=== PATIENT | male | born 1935 | race Caucasian/White ===

== ENCOUNTER 2018-04-04 05:36 | Day surgery (SDC) | payer MEDICARE, OTHER ==
[2018-04-04] MEDS ORDERED: Ketamine HCl 50 MG/ML IV ONE (05:37)
[2018-04-04] MEDS ORDERED: DIPRIVAN 200 MG/20 ML IV ONE (05:37)
[2018-04-04] MEDS ORDERED: Lactated Ringers 1,000 ML IV SCH (06:00)
[2018-04-04] MEDS ORDERED: Lactated Ringers 1,000 ML IV ONE (06:07)
[2018-04-04 09:11] VITALS: O2SAT 98
[2018-04-04 09:29] VITALS: BP 143/71; PULSE 61
--- NOTE | 2018-04-04 10:21 | OP ---
SURGERY DATE/TIME: 04/04/2018804 PREOPERATIVE DIAGNOSIS: History of lymphoma of the small bowel. POSTOPERATIVE DIAGNOSES: 1) NSAID gastropathy. 2) Sigmoid diverticulosis. PROCEDURES: 1) Esophagogastroduodenoscopy with biopsy. 2) Colonoscopy. SURGEON: Dr. Feliciano. ANESTHESIA: Medications were given by the anesthesia department. HISTORY: The patient is an 82 year-old white male presenting now due to the request to the patient's oncologist. He had a small bowel lymphoma apparently and he continues to have complaints of abdominal pain. He was felt the need to have endoscopic evaluation. The patient was described the risks of the procedure including the risk of perforation, phlebitis, untoward reaction to medication, bleeding, missed lesions. The patient verbalized his understanding and desired to have the procedure performed. DESCRIPTION OF PROCEDURE: The patient was given the medications by the anesthesia department. He had continuous pulse oximetry, ECG monitoring, intermittent blood pressure monitoring and tidal CO2 monitoring during the examination. He was placed in the left lateral decubitus position. A bite block was placed and the flexible Olympus gastroscope was used to intubate the oropharynx. A view of the larynx was obtained and was normal. The scope was easily introduced in the esophagus which was normal throughout its length. The stomach was entered where normal gastric rugal folds were seen and these distended nicely with insufflation of air. The scope was passed along the greater curvature of the stomach to the antrum where there appeared to be some erythema and some oozing from what appeared to be NSAID gastropathy. The pylorus encountered and intubated. The duodenum inspected and found to be mildly erythematous but no erosions or ulcerations were noted. The scope was withdrawn towards the stomach. A retroflex view was obtained of the lesser curvature, fundus and cardia regions of the stomach and these appeared essentially normal. The scope was then redirected towards the gastric antrum and biopsies were obtained to rule out the presence of Helicobacter pylori-type organisms. The scope was withdrawn from the patient. Next, a digital rectal exam was performed and revealed normal anal sphincter tone and no masses and normal prostate. The flexible Olympus pediatric colonoscope was used to intubate the rectum. A view of the colon was developed sequentially to the cecum. Upon insertion and withdrawal, including a retroflex view in the rectum was noted moderate diverticulosis throughout mostly the left side of the colon but scattered throughout the colon. There were no other mucosal lesions encountered. The scope was removed from the patient who tolerated the procedure well and was sent back to OP recovery in good condition. The prep was noted to be fair to poor.
== END 2018-04-04 09:35 | disposition home or self-care (01) ==
LOC: SDC 05:36
PROVIDERS: ATTEND Family Medicine
DX: Z12.11 Encounter for screening for malignant neoplasm of colon (principal); K31.9 Disease of stomach and duodenum, unspecified; K29.70 Gastritis, unspecified, without bleeding; Z85.72 Personal history of non-Hodgkin lymphomas; K57.30 Diverticulosis of large intestine without perforation or abscess without bleeding; Z90.49 Acquired absence of other specified parts of digestive tract; E11.9 Type 2 diabetes mellitus without complications
CPT/HCPCS: 43239; 94250; G0105; 88305; 88312; 99100; J2704

== ENCOUNTER 2021-01-28 12:30 | Observation (INO) | payer MEDICARE, OTHER ==
[2021-01-28] MEDS ORDERED: Adacel Vial IM ONE ×2 (13:00→13:03)
[2021-01-28] MEDS ORDERED: MORPHINE SULFATE 4 MG INJ IV ONE (13:00)
[2021-01-28] MEDS ORDERED: Zofran 4 MG/2 ML VIAL IV ONE (13:00)
[2021-01-28] MEDS ORDERED: MORPHINE SULFATE 4 MG INJ ONE (13:03)
[2021-01-28] MEDS ORDERED: Zofran 4 MG/2 ML VIAL ONE (13:03)
--- NOTE | 2021-01-28 13:25 | ERPHSYRPT ---
- History of Present Illness Time Seen by Provider: 01/28/21 13:00 Source: patient Exam Limitations: no limitations Patient Subjective Stated Complaint: pt alert, resp easy, skin w/d/p. pt states wednesday he hurt hand elctric drill and got right hand caugh, also co pain to left knee Triage Nursing Assessment: pt right hand swollen, has skin tear, right hand warm to touch, has swelling to left knee that is swollen, no injury, he states it is chronic Physician History: 85 years old male with a history of hypertension, hyperlipidemia, diabetes mellitus, hypothyroidism right-handed dominant presented in the ER with chief complaint of pain and swelling right hand for the last 2 days. Patient report he was working with electric drill when his right hand got caught between the index and thumb and twisted 2 days ago with a small cut. Gradually it started to develop swelling and pain initially around the lateral aspect of the hand and now involves the whole hand and progressing to wrist and forearm making it difficult to move because of swelling. He is complaining of dull aching to sharp pain in the right hand especially in the area of thumb and index. Also have swelling in the fingers but denies any numbness or tingling sensation. He also has a superficial skin tear at the first webspace area. Patient noticed since yesterday swelling is rapidly increasing and is warm to touch but denies any fever or chills. Unsure about tetanus status. Occurred: days ago (2) Method of Injury: twisted Quality: sharpness Severity of Pain-Max: moderate Severity of Pain-Current: moderate Extremities Pain Location: wrist: right, hand: right Modifying Factors: Improves With: immobilization, rest. Worsens With: movement Allergies/Adverse Reactions: No Known Drug Allergies Allergy (Verified 01/28/21 12:45) Home Medications: Allopurinol 300 mg [Zyloprim 300 mg] 300 mg PO UD 04/17/14 [History] Aspirin [Aspirin EC] 81 mg PO DAILY 04/17/14 [History] Isosorbide Mononitrate 30 mg [Imdur 30 MG] 30 mg PO DAILY 04/17/14 [History] Metoprolol Tartrate 25 mg [Lopressor 25MG Tab] 25 mg PO DAILY 04/17/14 [History] Nitroglycerin 0.4 mg Tablet [Nitrostat 0.4 MG Tablet] 0.4 mg SL UD 04/17/14 [History] Pravastatin Sodium [Pravachol] 40 mg PO HS 04/17/14 [History] Levothyroxine Sodium 25 Mcg [Synthroid 25 Mcg] 100 mcg PO DAILY 06/07/14 [History] Tamsulosin HCl 0.4 mg [Flomax 0.4 MG] 0.4 mg PO DAILY 06/07/14 [History] Lisinopril/Hydrochlorothiazide [Lisinopril-Hctz 20-12.5 mg Tab] 1 ea BID 01/28/21 [History] Hx Tetanus, Diphtheria Vaccination/Date Given: No Hx Influenza Vaccination/Date Given: Yes Hx Pneumococcal Vaccination/Date Given: No Travel Risk - International Travel Have you traveled outside of the country in past 3 weeks: No - Coronavirus Screening Are you exhibiting any of the following symptoms?: No Close contact with a COVID-19 positive Pt in past 14-21 Days: No - Vaccine Status Have you recieved a Covid-19 vaccination: Yes Advanced Quality 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 - Vaccination Dates Date of 2cond Vaccination (if applicable): january - Review of Systems Constitutional: No Symptoms Eyes: No Symptoms Ears, Nose, & Throat: No Symptoms Respiratory: No Symptoms Cardiac: No Symptoms Abdominal/Gastrointestinal: No Symptoms Genitourinary Symptoms: No Symptoms Musculoskeletal: Arthralgias, Injury, Joint Redness, Joint Pain Skin: Cellulitis, Induration, Rash, Skin Lesions Neurological: No Symptoms Psychological: No Symptoms Endocrine: No Symptoms Hematologic/Lymphatic: No Symptoms Immunological/Allergic: No Symptoms - Past Medical History Pertinent Past Medical History: Yes Neurological History: No Pertinent History ENT History: Cataracts Cardiac History: High Cholesterol, Hypertension Respiratory History: No Pertinent History Endocrine Medical History: Diabetes Type II Musculoskeletal History: Arthritis GI Medical History: GERD, Other History: No Pertinent History Psycho-Social History: No Pertinent History Male Reproductive Disorders: Prostate Problems Other Medical History: lymphoma, 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 - Past Surgical History Past Surgical History: Yes Neuro Surgical History: No Pertinent History Cardiac: Cardiac Catheterization, Cardiac Stent Respiratory: No Pertinent History Gastrointestinal: Other Genitourinary: No Pertinent History Musculoskeletal: No Pertinent History Male Surgical History: No Pertinent History Other Surgical History: cvl port placed.small bowel resection - Social History Smoking Status: Never smoker Exposure to second hand smoke: No Drug Use: none Patient Lives Alone: Yes - Nursing Vital Signs Nursing Vital Signs: Initial Vital Signs Temperature 97.8 F 01/28/21 12:35 Pulse Rate 77 01/28/21 12:35 Respiratory Rate 16 01/28/21 12:35 Blood Pressure 157/77 01/28/21 12:35 O2 Sat by Pulse Oximetry 97 01/28/21 12:35 Pain Scale Pain Intensity 0 - Physical Exam General Appearance: no apparent distress, alert, anxiety Eyes, Ears, Nose, Throat Exam: normal ENT inspection Neck Exam: normal inspection, non-tender, supple, full range of motion Cardiovascular/Respiratory Exam: chest non-tender, normal breath sounds, regular rate/rhythm Abdominal Exam: non-tender, soft, no organomegaly Back Exam: normal inspection, normal range of motion Shoulder Exam: normal inspection, normal ROM Elbow/Forearm Exam: normal inspection, non-tender, no evidence of injury Wrist Exam: normal ROM, pain, soft tissue tenderness, swelling, No bone tenderness Hand Exam: abrasions, bone tenderness, infection, limited ROM, soft tissue tenderness, swelling (Swelling entire dorsal surface of hand with swelling of fingers. Superficial skin tear between index and thumb. Warm and tender to touch. Tenderness in the first and second digit with mild tenderness in the wrist. Erythema is extending beyond wrist proximally but intact range of motion at the wr) Neuro/Tendon Exam: normal sensation, normal motor functions Mental Status Exam: alert, oriented x 3, cooperative SpO2 Interpretation: normal SpO2: 97 O2 Delivery: Room Air Ordered Tests: Active Orders 24 hr Category Date Time Status IV Insertion STAT Care 01/28/21 13:00 Active HAND (MINIMUM 3 VIEWS) Stat Exams 01/28/21 13:24 Completed WRIST (MIN 3 VIEWS) Stat Exams 01/28/21 13:24 Completed BLOOD CULTURE Stat Lab 01/28/21 13:31 Received CBC W DIFF Stat Lab 01/28/21 13:31 Completed CMP Stat Lab 01/28/21 13:31 Completed Lactic Acid Stat Lab 01/28/21 13:00 Completed Medication Summary Generic Name Dose Route Start Last Admin Trade Name Freq PRN Reason Stop Dose Admin Vancomycin HCl 2 gm in 400 mls @ 133.333 mls/hr 01/28/21 13:52 01/28/21 14:45 Vancomycin 2 Gram/400 Ml Bag IV 01/28/21 16:51 133.333 mls/hr STAT ONE 133.33 mls/hr Administration Discontinued Medications Generic Name Dose Route Start Last Admin Trade Name Yeison PRN Reason Stop Dose Admin Diphtheria/Tetanus/Acell Pertussis 0.5 ml 01/28/21 13:00 01/28/21 13:19 Adacel Vial IM 01/28/21 13:01 0.5 ml .ONCE ONE Administration Diphtheria/Tetanus/Acell Pertussis Confirm 01/28/21 13:03 Adacel Vial Administered 01/28/21 13:04 Dose 0.5 ml IM .STK-MED ONE Piperacillin Sod/Tazobactam 100 mls @ 200 mls/hr 01/28/21 13:51 01/28/21 14:03 Sod 3.375 gm/ Sodium Chloride IV 01/28/21 14:20 200 mls/hr STAT ONE Administration Sodium Chloride Confirm 01/28/21 14:01 Sodium Chloride 100ml Mini-Bag Plus Administered 01/28/21 14:02 Dose 100 mls @ ud IV .STK-MED ONE Vancomycin HCl Confirm 01/28/21 14:42 Vancomycin 2 Gram/400 Ml Bag Administered 01/28/21 14:43 Dose 2 gm in 400 mls @ ud IV .STK-MED ONE Morphine Sulfate 4 mg 01/28/21 13:00 01/28/21 13:19 Morphine Sulfate 4 Mg Inj IV 01/28/21 13:01 4 mg STAT ONE Administration Morphine Sulfate Confirm 01/28/21 13:03 Morphine Sulfate 4 Mg Inj Administered 01/28/21 13:04 Dose 4 mg .ROUTE .STK-MED ONE Ondansetron HCl 4 mg 01/28/21 13:00 01/28/21 13:19 Zofran 4 Mg/2 Ml Vial IV 01/28/21 13:01 4 mg STAT ONE Administration Ondansetron HCl Confirm 01/28/21 13:03 Zofran 4 Mg/2 Ml Vial Administered 01/28/21 13:04 Dose 4 mg .ROUTE .STK-MED ONE Piperacillin Sod/Tazobactam Sod Confirm 01/28/21 14:00 Zosyn 3.375 Gm Vial Administered 01/28/21 14:01 Dose 3.375 gm IV .STK-MED ONE Lab/Rad Data: Laboratory Result Diagrams 01/28/21 13:31 01/28/21 13:31 Laboratory Results 01/28/21 01/28/21 01/28/21 Range/Units 13:31 13:31 13:00 WBC 8.9 (4.0-10.5) K/mm3 RBC 4.65 (4.1-5.6) M/mm3 Hgb 14.1 (12.5-18.0) gm/dl Hct 43.8 (42-50) % MCV 94.2 (78-100) fl MCH 30.3 (26-32) pg MCHC 32.2 (32-36) g/dl RDW 14.7 H (11.5-14.0) % Plt Count 171 (150-450) K/mm3 MPV 9.8 (7.5-11.0) fl Gran % 80.5 H (36.0-66.0) % Eos # (Auto) 0.02 (0-0.5) Absolute Lymphs (auto) 1.17 (1.0-4.6) Absolute Monos (auto) 0.52 (0.0-1.3) Lymphocytes % 13.1 L (24.0-44.0) % Monocytes % 5.8 (0.0-12.0) % Eosinophils % 0.2 (0.00-5.0) % Basophils % 0.4 (0.0-0.4) % Absolute Granulocytes 7.16 H (1.4-6.9) Basophils # 0.04 (0-0.4) Sodium 139 (137-145) mmol/L Potassium 3.6 (3.5-5.1) mmol/L Chloride 107 (98-107) mmol/L Carbon Dioxide 24 (22-30) mmol/L Anion Gap 11.2 (5-15) MEQ/L BUN 13 (9-20) mg/dL Creatinine 1.08 (0.66-1.25) mg/dL Estimated GFR > 60.0 ML/MIN Glucose 128 H (74-106) mg/dL Lactic Acid 1.2 (0.4-2.0) Calcium 9.1 (8.4-10.2) mg/dL Total Bilirubin 0.90 (0.2-1.3) mg/dL AST 20 (17-59) U/L ALT 17 (0-50) U/L Alkaline Phosphatase 88 (38-126) U/L Serum Total Protein 6.3 (6.3-8.2) g/dL Albumin 3.8 (3.5-5.0) g/dL - Progress Progress: improved, re-examined Progress Note: 01/28/21 15:01 85 years old is evaluated for right hand swelling. Patient has cellulitis. His white count is normal with a lactate of 1.2. X-rays ruled out any fracture dislocation. Patient swelling/cellulitis is extending proximally to forearm. I believe he would benefit with IV antibiotics and have given dose of Zosyn/vancomycin. Discussed with Dr. Puentes and patient is being admitted. Discussed with : Caron Will see patient in: hospital (observation) Counseled pt/family regarding: lab results, diagnosis, rad results - Departure Departure Disposition: Observation Clinical Impression: Cellulitis of right hand Condition: Stable Critical Care Time: No Referrals: GRACE PUENTES [Primary Care Provider] -
--- NOTE | 2021-01-28 13:35 | XRAY ---
Indication: Pain and swelling following drilling injury. Comparison: None 3 view right hand demonstrates minimal/mild degenerative changes all IP and MCP joints. Mild wrist vascular calcifications. No other bony, articular, or soft tissue abnormalities.
--- NOTE | 2021-01-28 13:37 | XRAY ---
Indication: Pain and swelling following drilling injury. Comparison: None 3 view right wrist demonstrates mild degenerative changes 1st metacarpal multangular articulation with tiny heterotopic ossification and scattered vascular calcifications. No other bony, articular, or soft tissue abnormalities. Hand reported separately.
[2021-01-28 13:48] LABS: Absolute Neutrophil Ct (ANC) 7.16 (1.4-6.9); BASOPHIL % 0.4 % (0.0-0.4); Basophil (Absolute #) 0.04 (0-0.4); Eosinophil % 0.2 % (0.00-5.0); Eosinophil (Absolute #) 0.02 (0-0.5); Hematocrit 43.8 % (42-50); Hemoglobin 14.1 gm/dl (12.5-18.0); Lymphocyte (Absolute #) 1.17 (1.0-4.6); Lymphocytes % 13.1 % (24.0-44.0); Mean Cell Volume 94.2 fl (78-100); Mean Corpuscular Hemoglobin 30.3 pg (26-32); Mean Corpuscular Hgb Concent. 32.2 g/dl (32-36); Mean Platelet Volume 9.8 fl (7.5-11.0); Monocyte (Absolute #) 0.52 (0.0-1.3); Monocytes % 5.8 % (0.0-12.0); Neutrophil % 80.5 % (36.0-66.0); Platelet Count 171 K/mm3 (150-450); Red Blood Count 4.65 M/mm3 (4.1-5.6); Red Cell Distribution Width 14.7 % (11.5-14.0); White Blood Count 8.9 K/mm3 (4.0-10.5)
[2021-01-28] MEDS ORDERED: Zosyn 3.375 GM Vial 3.375 GM in Sodium Chloride 100ML MINI-BAG PLUS 100 ML IV ONE (13:51)
[2021-01-28] MEDS ORDERED: VANCOMYCIN 2 GRAM/400 ML BAG 2 GM/400 ML PIGGYBACK IV ONE ×2 (13:52→14:42)
[2021-01-28] MEDS ORDERED: Zosyn 3.375 GM Vial IV ONE ×2 (14:00→20:20)
[2021-01-28] MEDS ORDERED: Sodium Chloride 100ML MINI-BAG PLUS 100 ML IV ONE ×2 (14:01→20:21)
[2021-01-28 14:07] LABS: ALBUMIN 3.8 g/dL (3.5-5.0); ALKALINE PHOSPHATASE 88 U/L (38-126); ANION GAP 11.2 MEQ/L (5-15); BLOOD UREA NITROGEN 13 mg/dL (9-20); CHLORIDE 107 mmol/L (98-107); Calcium 9.1 mg/dL (8.4-10.2); Carbon Dioxide 24 mmol/L (22-30); Creatinine 1 1.08 mg/dL (0.66-1.25); EST GLOMERULAR FILTRATION RATE > 60.0 ML/MIN; Glucose 128 mg/dL (74-106); Potassium 3.6 mmol/L (3.5-5.1); SGOT/AST 20 U/L (17-59); SGPT/ALT 17 U/L (0-50); SODIUM 139 mmol/L (137-145); Total Protein 6.3 g/dL (6.3-8.2)
[2021-01-28 17:07] LABS: INFLUENZA A NEGATIVE (NEGATIVE); INFLUENZA B NEGATIVE (NEGATIVE); RESPIRATORY SYNCTIAL VIRUS NEGATIVE (Negative)
[2021-01-28] MEDS ORDERED: DUONEB 0.5-3 MG/3 ml Neb IH PRN (17:42)
[2021-01-28] MEDS ORDERED: HUMALOG SQ PRN (17:42)
[2021-01-28] MEDS ORDERED: MORPHINE SULFATE 2 MG INJ IV PRN (17:42)
[2021-01-28] MEDS ORDERED: Zofran 4 MG/2 ML VIAL IV PRN (17:42)
[2021-01-28] MEDS ORDERED: TYLENOL 325 MG PO PRN (17:42)
[2021-01-28] MEDS: VANCOCIN 1 GM VIAL*** 1 GM in Sodium Chloride 0.9% 250 ML 250 ML IV SCH (18:58)
[2021-01-28] MEDS ORDERED: HYDROCODONE-ACETAMIN 10-325 MG PO PRN (19:07)
[2021-01-28] MEDS: Zosyn 3.375 GM Vial 3.375 GM in Sodium Chloride 100ML MINI-BAG PLUS 100 ML IV SCH (20:32)
[2021-01-29] MEDS ORDERED: Sodium Chloride 100ML MINI-BAG PLUS 100 ML IV ONE ×2 (01:16→04:47)
[2021-01-29] MEDS ORDERED: Zosyn 3.375 GM Vial IV ONE ×2 (01:16→04:47)
[2021-01-29] MEDS: Zosyn 3.375 GM Vial 3.375 GM in Sodium Chloride 100ML MINI-BAG PLUS 100 ML IV SCH ×5 (01:32→23:51)
[2021-01-29] MEDS ORDERED: VANCOMYCIN 1 GRAM/200 ML BAG 1 GM/200 ML PIGGYBACK IV ONE (04:55)
[2021-01-29 05:19] LABS: BASOPHIL % 0.4 % (0.0-0.4); Basophil (Absolute #) 0.03 (0-0.4); Eosinophil % 1.2 % (0.00-5.0); Eosinophil (Absolute #) 0.08 (0-0.5); Hematocrit 41.8 % (42-50); Hemoglobin 13.5 gm/dl (12.5-18.0); Lymphocyte (Absolute #) 1.13 (1.0-4.6); Lymphocytes % 16.7 % (24.0-44.0); Mean Cell Volume 95.4 fl (78-100); Mean Corpuscular Hemoglobin 30.8 pg (26-32); Mean Corpuscular Hgb Concent. 32.3 g/dl (32-36); Mean Platelet Volume 9.6 fl (7.5-11.0); Monocyte (Absolute #) 0.44 (0.0-1.3); Monocytes % 6.5 % (0.0-12.0); Neutrophil % 75.2 % (36.0-66.0); Platelet Count 146 K/mm3 (150-450); Red Blood Count 4.38 M/mm3 (4.1-5.6); Red Cell Distribution Width 14.8 % (11.5-14.0); White Blood Count 6.8 K/mm3 (4.0-10.5)
[2021-01-29 05:35] LABS: ALBUMIN 3.2 g/dL (3.5-5.0); ALKALINE PHOSPHATASE 72 U/L (38-126); ANION GAP 10.8 MEQ/L (5-15); BLOOD UREA NITROGEN 16 mg/dL (9-20); CHLORIDE 109 mmol/L (98-107); Carbon Dioxide 22 mmol/L (22-30); Creatinine 1 1.09 mg/dL (0.66-1.25); EST GLOMERULAR FILTRATION RATE > 60.0 ML/MIN; Glucose 98 mg/dL (74-106); SGOT/AST 18 U/L (17-59); SGPT/ALT 13 U/L (0-50); SODIUM 137 mmol/L (137-145); Total Protein 5.4 g/dL (6.3-8.2)
[2021-01-29] MEDS: VANCOCIN 1 GM VIAL*** 1 GM in Sodium Chloride 0.9% 250 ML 250 ML IV SCH (05:42)
[2021-01-29] MEDS ORDERED: Nitrostat 0.4 MG Tablet SL PRN (07:00)
--- NOTE | 2021-01-29 09:34 | PCM.HP ---
History of Present Illness - Chief Complaint Chief Complaint: Right Hand Cellulitis Date: 01/29/21 History of Present Illness: is a 85 year old male seen this am following ER admission for R hand/wrist cellulitis. Patient reports he was working with an electrical tool and that he injured himself with the tool. Patient reported this happened on Wednesday. He started to have pain and swelling of his right hand. Patient reports the pain and swelling progressively worsened and increased to point that he was unable to make a fist. Patient reports decreased pain and swelling after he was started on IV antibiotics. Patient reports that he also has knee pain and swelling which is chronic in nature. He normally gets his knee injected with steroids but has not had this done recently. Patient reports that otherwise he is doing well. Patient lives by himself. - Review of Systems Constitutional: No Fever Eyes: No Symptoms Ears, Nose, & Throat: Other (Hard of hearing) Respiratory: No Symptoms Cardiac: No Symptoms Abdominal/Gastrointestinal: No Symptoms Genitourinary Symptoms: No Symptoms Musculoskeletal: Other (R hand pain erythema and swelling. L knee tender with palpation) Skin: Cellulitis Neurological: No Symptoms Psychological: No Symptoms, No Alcohol Abuse, No Drug Abuse, No Anxiety, No Depression Medications & Allergies Home Medications: Home Medication List Allopurinol 300 mg [Zyloprim 300 mg] 300 mg PO UD 04/17/14 [History Confirmed 01/28/21] Aspirin [Aspirin EC] 81 mg PO DAILY 04/17/14 [History Confirmed 01/28/21] Isosorbide Mononitrate 30 mg [Imdur 30 MG] 30 mg PO DAILY 04/17/14 [History Confirmed 01/28/21] Metoprolol Tartrate 25 mg [Lopressor 25MG Tab] 25 mg PO DAILY 04/17/14 [History Confirmed 01/28/21] Nitroglycerin 0.4 mg Tablet [Nitrostat 0.4 MG Tablet] 0.4 mg SL UD 04/17/14 [History Confirmed 01/28/21] Pravastatin Sodium [Pravachol] 40 mg PO HS 04/17/14 [History Confirmed 01/28/21] Levothyroxine Sodium 25 Mcg [Synthroid 25 Mcg] 100 mcg PO DAILY 06/07/14 [History Confirmed 01/28/21] Tamsulosin HCl 0.4 mg [Flomax 0.4 MG] 0.4 mg PO DAILY 06/07/14 [History Confirmed 01/28/21] Donepezil HCl 10 mg [Aricept 10 MG] 10 mg PO DAILY 01/28/21 [History Confirmed 01/28/21] Lisinopril/Hydrochlorothiazide [Lisinopril-Hctz 20-12.5 mg Tab] 1 ea BID 01/28/21 [History Confirmed 01/28/21] Cephalexin Monohydrate [Keflex] 500 mg PO TID #21 capsule 01/30/21 [Rx] Allergies/Adverse Reactions: Allergies Allergy/AdvReac Type Severity Reaction Status Date / Time No Known Drug Allergies Allergy Verified 01/28/21 12:45 - Past Medical History Past Medical History: Yes Neurological History: Dementia ENT History: Cataracts Cardiac History: High Cholesterol, Hypertension Respiratory History: No Pertinent History Endocrine Medical History: Diabetes Type II, Hypothyroidism Musculoskelatal History: Arthritis GI Medical History: Diverticulosis, GERD, Stomach Cancer, Other History: Other Pyscho-Social History: No Pertinent History Male Reproductive Disorders: Prostate Problems Comment: lymphoma, 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, patient states "there is something wrong with my bladder, he has been working on it for 6 months", can not report what specifically his condition is - Past Surgical History Past Surgical History: Yes Neuro Surgical History: No Pertinent History Cardiac History: Cardiac Catheterization, Cardiac Stent Respiratory Surgery: No Pertinent History GI Surgical History: Other Genitourinary Surgical Hx: No Pertinent History Musculskeletal Surgical Hx: No Pertinent History Male Surgical History: No Pertinent History Other Surgical History: cvl port placed.small bowel resection - Social History Smoking Status: Current every day smoker Exposure to second hand smoke: No Alcohol: Occasionally Drug Use: none - Physical Exam Vital Signs: Vital Signs - 24 hr Temp Pulse Resp BP Pulse Ox 01/29/21 07:42 98.3 F 69 124/60 96 01/29/21 07:25 98.5 F 72 20 96 01/29/21 03:59 98.1 F 63 18 106/56 95 01/29/21 00:00 99.3 F 68 18 119/56 96 01/28/21 20:00 97.8 F 76 20 141/76 96 01/28/21 19:00 97.8 F 76 20 141/76 96 01/28/21 18:15 97.8 F 76 20 141/76 96 01/28/21 17:57 76 20 141/76 96 01/28/21 17:02 72 16 137/99 01/28/21 16:00 16 137/99 01/28/21 15:03 97 01/28/21 14:50 75 18 140/76 98 01/28/21 14:08 74 18 146/76 97 01/28/21 12:35 97.8 F 77 16 157/77 97 General Appearance: mild distress, other (overweight) Neurologic Exam: oriented x 3, cooperative, normal mood/affect Eye Exam: eyes nml inspection, No scleral icterus Ears, Nose, Throat Exam: moist mucous membranes Neck Exam: normal inspection Respiratory Exam: normal breath sounds, lungs clear, No respiratory distress, No diminished breath sounds, No crackles/rales, No wheezing Cardiovascular Exam: regular rate/rhythm, normal heart sounds, No murmur, No friction rub, No gallop Gastrointestinal/Abdomen Exam: soft, normal bowel sounds, No tenderness, No distention, No mass, No guarding Rectal Exam: not done Back Exam: normal inspection Extremity Exam: normal range of motion (R hand has decreased ROM), swelling (R hand and L knee), tenderness (R hand erythema and swelling there is small open wound present. L knee swelling and tenderness with palpation) Skin Exam: dry, No normal color (R hand erythema), No warm (R hand warmth) Wound Assessment: Skin/Wound Assessment Wound/Incision Assessment Start: 01/28/21 17:43 Text: Status: Active Freq: Q6H Protocol: Document 01/29/21 08:00 KILPATRICK (Rec: 01/29/21 09:28 KILPATRICK [id number]) Wound Photo Photo Taken No Results - Labs Lab/Micro Results: Lab Results-Last 24 Hours 01/28/21 01/28/21 01/28/21 Range/Units 13:00 13:31 13:31 WBC 8.9 (4.0-10.5) K/mm3 RBC 4.65 (4.1-5.6) M/mm3 Hgb 14.1 (12.5-18.0) gm/dl Hct 43.8 (42-50) % MCV 94.2 (78-100) fl MCH 30.3 (26-32) pg MCHC 32.2 (32-36) g/dl RDW 14.7 H (11.5-14.0) % Plt Count 171 (150-450) K/mm3 MPV 9.8 (7.5-11.0) fl Gran % 80.5 H (36.0-66.0) % Eos # (Auto) 0.02 (0-0.5) Absolute Lymphs (auto) 1.17 (1.0-4.6) Absolute Monos (auto) 0.52 (0.0-1.3) Lymphocytes % 13.1 L (24.0-44.0) % Monocytes % 5.8 (0.0-12.0) % Eosinophils % 0.2 (0.00-5.0) % Basophils % 0.4 (0.0-0.4) % Absolute Granulocytes 7.16 H (1.4-6.9) Basophils # 0.04 (0-0.4) Sodium 139 (137-145) mmol/L Potassium 3.6 (3.5-5.1) mmol/L Chloride 107 (98-107) mmol/L Carbon Dioxide 24 (22-30) mmol/L Anion Gap 11.2 (5-15) MEQ/L BUN 13 (9-20) mg/dL Creatinine 1.08 (0.66-1.25) mg/dL Estimated GFR > 60.0 ML/MIN Glucose 128 H (74-106) mg/dL POC Glucometer (74 to 106) mg/dL Lactic Acid 1.2 (0.4-2.0) Calcium 9.1 (8.4-10.2) mg/dL Total Bilirubin 0.90 (0.2-1.3) mg/dL AST 20 (17-59) U/L ALT 17 (0-50) U/L Alkaline Phosphatase 88 (38-126) U/L Serum Total Protein 6.3 (6.3-8.2) g/dL Albumin 3.8 (3.5-5.0) g/dL Influenza Type A Ag (NEGATIVE) Influenza Type B Ag (NEGATIVE) RSV (PCR) (Negative) SARS-CoV-2 (PCR) (NEGATIVE) 01/28/21 01/28/21 01/29/21 Range/Units 15:19 20:48 04:41 WBC 6.8 (4.0-10.5) K/mm3 RBC 4.38 (4.1-5.6) M/mm3 Hgb 13.5 (12.5-18.0) gm/dl Hct 41.8 L (42-50) % MCV 95.4 (78-100) fl MCH 30.8 (26-32) pg MCHC 32.3 (32-36) g/dl RDW 14.8 H (11.5-14.0) % Plt Count 146 L (150-450) K/mm3 MPV 9.6 (7.5-11.0) fl Gran % 75.2 H (36.0-66.0) % Eos # (Auto) 0.08 (0-0.5) Absolute Lymphs (auto) 1.13 (1.0-4.6) Absolute Monos (auto) 0.44 (0.0-1.3) Lymphocytes % 16.7 L (24.0-44.0) % Monocytes % 6.5 (0.0-12.0) % Eosinophils % 1.2 (0.00-5.0) % Basophils % 0.4 (0.0-0.4) % Absolute Granulocytes 5.10 (1.4-6.9) Basophils # 0.03 (0-0.4) Sodium (137-145) mmol/L Potassium (3.5-5.1) mmol/L Chloride (98-107) mmol/L Carbon Dioxide (22-30) mmol/L Anion Gap (5-15) MEQ/L BUN (9-20) mg/dL Creatinine (0.66-1.25) mg/dL Estimated GFR ML/MIN Glucose (74-106) mg/dL POC Glucometer 151 H (74 to 106) mg/dL Lactic Acid (0.4-2.0) Calcium (8.4-10.2) mg/dL Total Bilirubin (0.2-1.3) mg/dL AST (17-59) U/L ALT (0-50) U/L Alkaline Phosphatase (38-126) U/L Serum Total Protein (6.3-8.2) g/dL Albumin (3.5-5.0) g/dL Influenza Type A Ag NEGATIVE (NEGATIVE) Influenza Type B Ag NEGATIVE (NEGATIVE) RSV (PCR) NEGATIVE (Negative) SARS-CoV-2 (PCR) NEGATIVE (NEGATIVE) 01/29/21 01/29/21 Range/Units 04:41 06:50 WBC (4.0-10.5) K/mm3 RBC (4.1-5.6) M/mm3 Hgb (12.5-18.0) gm/dl Hct (42-50) % MCV (78-100) fl MCH (26-32) pg MCHC (32-36) g/dl RDW (11.5-14.0) % Plt Count (150-450) K/mm3 MPV (7.5-11.0) fl Gran % (36.0-66.0) % Eos # (Auto) (0-0.5) Absolute Lymphs (auto) (1.0-4.6) Absolute Monos (auto) (0.0-1.3) Lymphocytes % (24.0-44.0) % Monocytes % (0.0-12.0) % Eosinophils % (0.00-5.0) % Basophils % (0.0-0.4) % Absolute Granulocytes (1.4-6.9) Basophils # (0-0.4) Sodium 137 (137-145) mmol/L Potassium 4.0 (3.5-5.1) mmol/L Chloride 109 H (98-107) mmol/L Carbon Dioxide 22 (22-30) mmol/L Anion Gap 10.8 (5-15) MEQ/L BUN 16 (9-20) mg/dL Creatinine 1.09 (0.66-1.25) mg/dL Estimated GFR > 60.0 ML/MIN Glucose 98 (74-106) mg/dL POC Glucometer 96 (74 to 106) mg/dL Lactic Acid (0.4-2.0) Calcium 8.0 L (8.4-10.2) mg/dL Total Bilirubin 0.60 (0.2-1.3) mg/dL AST 18 (17-59) U/L ALT 13 (0-50) U/L Alkaline Phosphatase 72 (38-126) U/L Serum Total Protein 5.4 L (6.3-8.2) g/dL Albumin 3.2 L (3.5-5.0) g/dL Influenza Type A Ag (NEGATIVE) Influenza Type B Ag (NEGATIVE) RSV (PCR) (Negative) SARS-CoV-2 (PCR) (NEGATIVE) - Radiology Impressions Radiology Exams & Impressions: Radiology Procedures Category Date Time Status HAND (MINIMUM 3 VIEWS) Stat Exams 01/28/21 13:24 Completed WRIST (MIN 3 VIEWS) Stat Exams 01/28/21 13:24 Completed Assessment/Plan (1) Cellulitis of right hand Status: Acute Assessment & Plan: Patient was started on IV antibiotics vanc and zosyn for cellulitis. Patient had xrays negative for fxs. Patient started to show improvement with antibiotics. Will continue on antibiotics. Code(s): L03.113 - CELLULITIS OF RIGHT UPPER LIMB (2) Knee pain Status: Acute Assessment & Plan: Patient likely has OA. He reports that he needs knee injection. Will have patient follow up as outpatient to get steroid injection Code(s): M25.569 - PAIN IN UNSPECIFIED KNEE (3) Hard of hearing Status: Acute Code(s): H91.90 - UNSPECIFIED HEARING LOSS, UNSPECIFIED EAR (4) Diabetes mellitus Status: Acute Assessment & Plan: Patient will be on diabetic diet and have BS done ACHS. Code(s): E11.9 - TYPE 2 DIABETES MELLITUS WITHOUT COMPLICATIONS (5) Dementia Status: Acute Assessment & Plan: Will continue on routine home meds Code(s): F03.90 - UNSPECIFIED DEMENTIA WITHOUT BEHAVIORAL DISTURBANCE (6) Hypothyroid Status: Acute Assessment & Plan: Will continue on routine home meds Code(s): E03.9 - HYPOTHYROIDISM, UNSPECIFIED
[2021-01-29] MEDS: PROTONIX 40 MG IV IV SCH (09:42)
[2021-01-29] MEDS: ECOTRIN 81 MG PO SCH (09:46)
[2021-01-29] MEDS: Imdur 30 MG PO SCH (09:46)
[2021-01-29] MEDS: SYNTHROID 100 MCG PO SCH (09:47)
[2021-01-29] MEDS: hydroDIURIL 25 MG PO SCH ×2 (09:47→21:19)
[2021-01-29] MEDS: Aricept 10 MG PO SCH (09:49)
[2021-01-29] MEDS: Zestril 20 MG PO SCH ×2 (09:49→21:19)
[2021-01-29] MEDS: Lopressor 25MG Tab PO SCH (09:50)
[2021-01-29] MEDS: Flomax 0.4 MG PO SCH (09:50)
[2021-01-29] MEDS ORDERED: ZYLOPRIM 300 MG PO SCH (10:00)
[2021-01-29] MEDS ORDERED: [UNRECOGNIZED DRUG - OTHER] PO SCH (10:00)
[2021-01-29] MEDS ORDERED: HYDROCHLOROTHIAZIDE PO SCH (10:00)
[2021-01-29] MEDS ORDERED: LISINOPRIL PO SCH (10:00)
[2021-01-29] MEDS ORDERED: SYNTHROID 25 MCG PO SCH (10:00)
[2021-01-30 05:03] LABS: Creatinine 1 1.27 mg/dL (0.66-1.25); EST GLOMERULAR FILTRATION RATE 57.3 ML/MIN
[2021-01-30] MEDS: Zosyn 3.375 GM Vial 3.375 GM in Sodium Chloride 100ML MINI-BAG PLUS 100 ML IV SCH (05:56)
[2021-01-30 07:26] VITALS: BP 99/50; PULSE 63; O2SAT 98
[2021-01-30] MEDS: PROTONIX 40 MG IV IV SCH (09:08)
[2021-01-30] MEDS: ECOTRIN 81 MG PO SCH (09:17)
[2021-01-30] MEDS: Imdur 30 MG PO SCH (09:17)
[2021-01-30] MEDS: SYNTHROID 100 MCG PO SCH (09:17)
[2021-01-30] MEDS: Flomax 0.4 MG PO SCH (09:17)
[2021-01-30] MEDS: Lopressor 25MG Tab PO SCH (09:17)
[2021-01-30] MEDS: Zestril 20 MG PO SCH (09:17)
[2021-01-30] MEDS: hydroDIURIL 25 MG PO SCH (09:18)
[2021-01-30] MEDS: Aricept 10 MG PO SCH (09:18)
--- NOTE | 2021-01-30 09:20 | PCM.DCORD ---
- Discharge Disposition: Home, Self-Care Condition: Stable Prescriptions: New Cephalexin Monohydrate [Keflex] 500 mg PO TID #21 capsule Continue Pravastatin Sodium [Pravachol] 40 mg PO HS Metoprolol Tartrate 25 mg [Lopressor 25MG Tab] 25 mg PO DAILY Isosorbide Mononitrate 30 mg [Imdur 30 MG] 30 mg PO DAILY Allopurinol 300 mg [Zyloprim 300 mg] 300 mg PO UD Nitroglycerin 0.4 mg Tablet [Nitrostat 0.4 MG Tablet] 0.4 mg SL UD Aspirin [Aspirin EC] 81 mg PO DAILY Levothyroxine Sodium 25 Mcg [Synthroid 25 Mcg] 100 mcg PO DAILY Tamsulosin HCl 0.4 mg [Flomax 0.4 MG] 0.4 mg PO DAILY Lisinopril/Hydrochlorothiazide [Lisinopril-Hctz 20-12.5 mg Tab] 1 ea BID Donepezil HCl 10 mg [Aricept 10 MG] 10 mg PO DAILY Instructions: Cellulitis (Skin Infection), Adult (DC) Additional Instructions: Patient knows to go to ER if swelling in hand gets worse over the weekend. Follow up with: GRACE MCLEOD [Primary Care Provider] - 02/03/21 11:45 am
[2021-01-30] MEDS ORDERED: VANCOMYCIN 1.25 GM/250 ML BAG 1.25 GM/250 ML PIGGYBACK IV SCH (10:00)
[2021-01-31] MEDS ORDERED: TROUGH DRUG LEVELS IJ ONE (09:30)
== END 2021-01-30 10:47 | disposition home or self-care (01) ==
LOC: ED 12:30 → MED SURG 17:42
PROVIDERS: ADMIT Family Medicine; ATTEND Family Medicine
DX: L03.113 Cellulitis of right upper limb (principal); M79.641 Pain in right hand; S60.511A Abrasion of right hand, initial encounter; I10 Essential (primary) hypertension; E11.9 Type 2 diabetes mellitus without complications; E78.5 Hyperlipidemia, unspecified; E03.9 Hypothyroidism, unspecified; Z79.899 Other long term (current) drug therapy; E78.00 Pure hypercholesterolemia, unspecified; Z20.828 Contact with and (suspected) exposure to other viral communicable diseases; Z23 Encounter for immunization
CPT/HCPCS: 0241U; 36000; 36415; 73110; 73130; 80053; 82565; 82947; 83605; 85025; 87040; 90471; 96365; 96367; 96374; 96375; 99285; G0378; 90715; J2270; J2405; J3370; A9270-GY

== ENCOUNTER 2021-05-01 05:46 | Emergency (ER) | payer MEDICARE, OTHER ==
[2021-05-01] MEDS ORDERED: MORPHINE SULFATE 2 MG INJ IV ONE (06:17)
--- NOTE | 2021-05-01 06:29 | ERPHSYRPT ---
- History of Present Illness Time Seen by Provider: 05/01/21 06:20 Source: patient Exam Limitations: no limitations Physician History: Patient is a 86-year-old male presents to our ED via EMS for evaluation of head injury neck back chest and abdominal pain post fall. Patient has a history of dementia. Patient was outdoors yesterday evening at approximately 6 PM working on his shed. Patient states he fell backwards and hit his head on the concrete. We're unsure if there was loss of consciousness involved. Patient did not immediately seek medical attention. Patient arrived to our ED at approximately 6 AM 12 hours after the fall. Patient arrived with a cervical collar. He was not boarded. Patient appears to be answering questions appropriately. There is a large posterior scalp laceration with hematoma formation. There is mild deformity at this site. There are multiple skin tears at both upper extremities particularly at the elbow down to the wrists. Patient states that he has been ambulatory. Patient is here because his requested that he come to the ED f or evaluation. Patient complains of pain to the back of his head upper thoracic spine lower cervical spine anterior chest wall and anterior abdominal wall. No ecchymosis observed other than the laceration and hematoma formation observed at the back of patient's forehead. Tetanus is up-to-date. Patient denies nausea vomiting diaphoresis. Method of Injury: fall Occurred: hours ago (6 hours ago) Where Injury Occurred: home Loss of Consciousness: unsure Pain Location: head, neck, chest, abdomen Severity of Pain-Max: moderate Severity of Pain-Current: mild Modifying Factors: Improves With: movement Associated Symptoms: abdominal pain, chest pain, No shortness of breath, No slurred speech, No vomiting Allergies/Adverse Reactions: No Known Drug Allergies Allergy (Verified 01/28/21 12:45) Home Medications: Allopurinol 300 mg [Zyloprim 300 mg] 300 mg PO UD 04/17/14 [History] Aspirin [Aspirin EC] 81 mg PO DAILY 04/17/14 [History] Isosorbide Mononitrate 30 mg [Imdur 30 MG] 30 mg PO DAILY 04/17/14 [History] Metoprolol Tartrate 25 mg [Lopressor 25MG Tab] 25 mg PO DAILY 04/17/14 [History] Nitroglycerin 0.4 mg Tablet [Nitrostat 0.4 MG Tablet] 0.4 mg SL UD 04/17/14 [History] Pravastatin Sodium [Pravachol] 40 mg PO HS 04/17/14 [History] Levothyroxine Sodium 25 Mcg [Synthroid 25 Mcg] 100 mcg PO DAILY 06/07/14 [History] Tamsulosin HCl 0.4 mg [Flomax 0.4 MG] 0.4 mg PO DAILY 06/07/14 [History] Donepezil HCl 10 mg [Aricept 10 MG] 10 mg PO DAILY 01/28/21 [History] Lisinopril/Hydrochlorothiazide [Lisinopril-Hctz 20-12.5 mg Tab] 1 ea BID 01/28/21 [History] Hx Tetanus, Diphtheria Vaccination/Date Given: No Hx Influenza Vaccination/Date Given: Yes Hx Pneumococcal Vaccination/Date Given: No Travel Risk - Vaccine Status Have you recieved a Covid-19 vaccination: Yes Loss Prevention Detective: Unknown - Vaccination Dates Dates if Unknown: 01/21/21 Comment: patient states he got both shots, [facility] - Review of Systems Constitutional: No Symptoms, No Fever, No Chills Eyes: No Symptoms Ears, Nose, & Throat: No Symptoms Respiratory: No Symptoms, No Cough, No Dyspnea Cardiac: No Symptoms, No Chest Pain, No Edema, No Syncope Abdominal/Gastrointestinal: No Symptoms, No Abdominal Pain, No Nausea, No Vomiting, No Diarrhea Genitourinary Symptoms: No Symptoms, No Dysuria Musculoskeletal: No Symptoms, No Back Pain, No Neck Pain Skin: No Symptoms, No Rash Neurological: No Symptoms, No Dizziness, No Focal Weakness, No Sensory Changes Psychological: No Symptoms Endocrine: No Symptoms Hematologic/Lymphatic: No Symptoms Immunological/Allergic: No Symptoms All Other Systems: Reviewed and Negative - Past Medical History Pertinent Past Medical History: Yes Neurological History: Dementia ENT History: Cataracts Cardiac History: High Cholesterol, Hypertension Respiratory History: No Pertinent History Endocrine Medical History: Diabetes Type II, Hypothyroidism Musculoskeletal History: Arthritis GI Medical History: Diverticulosis, GERD, Stomach Cancer, Other History: Other Psycho-Social History: No Pertinent History Male Reproductive Disorders: Prostate Problems Other Medical History: lymphoma, 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, patient states "there is something wrong with my bladder, he has been working on it for 6 months", can not report what specifically his condition is - Past Surgical History Past Surgical History: Yes Neuro Surgical History: No Pertinent History Cardiac: Cardiac Catheterization, Cardiac Stent Respiratory: No Pertinent History Gastrointestinal: Other Genitourinary: No Pertinent History Musculoskeletal: No Pertinent History Male Surgical History: No Pertinent History Other Surgical History: cvl port placed.small bowel resection - Social History Smoking Status: Current every day smoker Exposure to second hand smoke: No Drug Use: none Patient Lives Alone: Yes Physical Exam - Nursing Vital Signs Nursing Vital Signs: Initial Vital Signs Temperature 97.7 F 05/01/21 06:06 Pulse Rate 71 05/01/21 06:06 Respiratory Rate 16 05/01/21 06:06 Blood Pressure 122/68 05/01/21 06:06 O2 Sat by Pulse Oximetry 97 05/01/21 06:06 Pain Scale Pain Intensity 6 - [place] Coma Score Best Eye Response ([place]): (4) open spontaneously Best Verbal Response ([place]): (5) oriented Best Motor Response ([place]): (6) obeys commands [place] Total: 15 - Physical Exam General Appearance: no apparent distress, alert Head Injury: lacerations (There is a 5 cm x 3 cm laceration to the posterior scalp. There is a hematoma at this location as well. The hematoma is superficial and was evacuated prior to wound care. Wound was irrigated and closed with 10 john.), No Adams's Sign, No raccoon eyes Eye Exam: bilateral eye: normal inspection, PERRL, EOMI, abnormal EOM ENT Exam: airway nml, nml ext.inspection, No evidence of ENT injury, No dental injury, No clear fluid (ears), No midface instability, No hemotympanum, No clotted nasal blood Neck Exam: supple, trachea midline, normal inspection, limited range of motion (Patient complains of neck pain. C-collar intact.), stiff neck, c-collar in place, No focal neuro deficit, No tenderness Respiratory/Chest Exam: normal breath sounds, rib tenderness (Rib tenderness primarily left anterior chest.), No chest tenderness, No respiratory distress, No ecchymosis, No crepitus, No decreased breath sounds, No accessory muscle use, No paradoxical movements Cardiovascular Exam: normal heart sounds, regular rate/rhythm, normal peripheral pulses, No murmur, No edema, No JVD Gastrointestinal Exam: soft, tenderness (Tenderness palpation anterior abdominal wall. No guarding), No distention, No guarding, No pulsatile mass Genitalia Exam: normal genital exam Rectal Exam: deferred Back Exam: normal range of motion, decreased range of motion (Tenderness to palpation along the upper thoracic spine.), No CVA tenderness, No vertebral tenderness Extremity Exam: normal inspection, normal range of motion, capillary refill <3 sec, pelvis stable, contusions, other (Tear left elbow measuring 1 x 1 cm. Skin tear left forearm measuring 3 x 1 cm. Skin tear left wrist measuring 3 x 1 cm. Right elbow 3 x 1 cm.), No amputations, No paralysis, No bony point tenderness, No swelling, No tenderness Neurologic Exam: alert, oriented x 3, cooperative, workforce management coordinator II-XII nml as tested, sensation nml, No motor deficits, No disoriented, No confusion, No intoxicated appearance, No motor weakness, No slurred speech, No aphasia Skin Exam: normal color, warm, dry SpO2 Interpretation: normal O2 Delivery: Room Air Procedures - Laceration/Wound Repair Posterior Head Time of Procedure: 06:40 Wound Location: head (Posterior scalp.) Wound Length (cm): 5 (Wound measures 5 x 3 cm. Wound is stellate shaped down to the galea) Wound's Depth, Shape: stellate, contused tissue Wound Explored: There was scalp hematoma observed which was evacuated and subsequently irri Irrigated: Yes Hibiclens Prep: Yes Wound Debrided: Dry hematoma was evacuated as it was required to perform an adequate wound Wound Repaired With: John Number of Sutures: 10 (Wound was closed with 10 john.) Layer Closure?: No Sterile Dressing Applied?: Yes Splint Applied?: No Progress: Patient tolerated procedure well. The injured area was numb. No anesthesia/local anesthetic was used. Patient agreed to repair without local. No complications. 05/01/21 06:59 - Course Nursing assessment & vital signs reviewed: Yes EKG Interpreted by Me: RATE (65), Sinus Rhythm, NORMAL AXIS, NORMAL INTERVALS (Q waves at inferior leads. No STEMI) Ordered Tests: Active Orders 24 hr Category Date Time Status Newcomer Hostess STAT Care 05/01/21 06:18 Ordered EKG-ER Only STAT Care 05/01/21 06:17 Ordered IV Insertion STAT Care 05/01/21 06:17 Ordered Pulse Oximetry (ED) STAT Care 05/01/21 06:17 Ordered ABDOMEN AND PELVIS W CONTRAST [CT] Stat Exams 05/01/21 06:20 Ordered CERVICAL SPINE WO CONTRAST [CT] Stat Exams 05/01/21 06:22 Ordered CHEST WITHOUT CONTRAST [CT] Stat Exams 05/01/21 06:22 Ordered HEAD WITHOUT CONTRAST [CT] Stat Exams 05/01/21 06:22 Ordered RECONSTRUCTION [CT] Routine Exams 05/01/21 06:33 Ordered CBC W DIFF Stat Lab 05/01/21 06:17 Ordered CMP Stat Lab 05/01/21 06:17 Ordered TROPONIN Q3H Lab 05/01/21 06:30 Ordered TROPONIN Q3H Lab 05/01/21 09:30 Ordered TROPONIN Q3H Lab 05/01/21 12:30 Ordered TROPONIN Q3H Lab 05/01/21 15:30 Ordered TROPONIN Q3H Lab 05/01/21 18:30 Ordered UA W/RFX UR CULTURE Stat Lab 05/01/21 06:18 Ordered Medication Summary Generic Name Dose Route Start Last Admin Trade Name Freq PRN Reason Stop Dose Admin Sodium Chloride 1,000 mls @ 100 mls/hr 05/01/21 06:30 Sodium Chloride 0.9% 1000 Ml IV 05/31/21 06:29 .Q10H NICOL Discontinued Medications Generic Name Dose Route Start Last Admin Trade Name Freq PRN Reason Stop Dose Admin Morphine Sulfate 2 mg 05/01/21 06:17 Morphine Sulfate 2 Mg Inj IV 05/01/21 06:18 STAT ONE - Progress Progress: improved Progress Note: Labs and imaging studies pending. Patient endorsed to Dr. Brice Garcia incoming ER physician. Dr. Garcia will review pending studies and make final disposition. 05/01/21 06:55 - Departure Clinical Impression: Fall, Scalp laceration, Skin tear of left upper extremity, Skin tear of right elbow without complication Condition: Stable Critical Care Time: No Referrals: GRACE MCLEOD [Primary Care Provider] -
[2021-05-01] MEDS ORDERED: Sodium Chloride 0.9% 1000 ML 1,000 ML IV SCH (06:30)
[2021-05-01 07:00] LABS: Absolute Neutrophil Ct (ANC) 10.47 (1.4-6.9); BASOPHIL % 0.5 % (0.0-0.4); Basophil (Absolute #) 0.06 (0-0.4); Eosinophil % 0.2 % (0.00-5.0); Eosinophil (Absolute #) 0.02 (0-0.5); Hematocrit 44.9 % (42-50); Hemoglobin 14.4 gm/dl (12.5-18.0); Lymphocyte (Absolute #) 1.42 (1.0-4.6); Lymphocytes % 11.1 % (24.0-44.0); Mean Cell Volume 93.5 fl (78-100); Mean Corpuscular Hgb Concent. 32.1 g/dl (32-36); Mean Platelet Volume 10.2 fl (7.5-11.0); Monocyte (Absolute #) 0.85 (0.0-1.3); Monocytes % 6.6 % (0.0-12.0); Neutrophil % 81.6 % (36.0-66.0); Platelet Count 183 K/mm3 (150-450); Red Cell Distribution Width 15.2 % (11.5-14.0); White Blood Count 12.8 K/mm3 (4.0-10.5)
[2021-05-01 07:17] LABS: ALBUMIN 4.3 g/dL (3.5-5.0); ANION GAP 15.4 MEQ/L (5-15); BILIRUBIN,TOTAL 1.4 mg/dL (0.2-1.3); Calcium 9.2 mg/dL (8.4-10.2); Creatinine 1 1.54 mg/dL (0.66-1.25); EST GLOMERULAR FILTRATION RATE 45.8 ML/MIN; Potassium 4.5 mmol/L (3.5-5.1); Total Protein 6.5 g/dL (6.3-8.2)
[2021-05-01] MEDS ORDERED: MORPHINE SULFATE 2 MG INJ ONE (07:41)
[2021-05-01] MEDS ORDERED: Sodium Chloride 0.9% 1000 ML 1,000 ML ONE (07:42)
--- NOTE | 2021-05-01 08:38 | XRAY ---
Indication: Head injury and laceration following fall. Multiple contiguous axial images obtained through the head without contrast. 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 No acute intracranial hemorrhage, abnormal extra-axial fluid collection, or mass effect. Fourth ventricle is midline without hydrocephalus. Small right occipital scalp hematoma with overlying cutaneous noah. Bony calvarium intact. Visualized paranasal sinuses and mastoid air cells are clear. Impression: 1. Right occipital scalp hematoma. No underlying fracture or acute intracranial abnormalities. 2. Atrophy and degenerative micro-ischemia within normal limits for patient's age. 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
--- NOTE | 2021-05-01 08:40 | XRAY ---
Indication: Head injury and laceration following fall. Multiple contiguous axial images obtained through the cervical spine. Sagittal and coronal reformatted images obtained. Comparison: None Age-related osteopenia. Axial images negative for acute fracture or suspicious bony lesions. Mild/moderate multilevel degenerative disc osteophyte complex greatest at the C6-C7 level with subsequent spinal canal and bilateral foraminal stenosis. Also mild/moderate multilevel bilateral degenerative facet hypertrophy and moderate atlantoaxial degenerative arthropathy. Sagittal and coronal reformatted images demonstrates normal alignment with mild/moderate multilevel disc space narrowing greatest at C5-C6. No acute compression fracture, subluxation, or jumped facet. Normal appearing craniocervical junction. Visualized noncontrasted soft tissues are unremarkable. CT head and CT chest reported separately. Impression: 1. Negative for acute fracture/subluxation. 2. Osteopenia and multilevel degenerative spondylosis.
[2021-05-01 08:41] VITALS: BP 114/60; O2SAT 98
--- NOTE | 2021-05-01 08:52 | XRAY ---
Indication: Trauma following fall. Axial, coronal, and sagittal reformatted images of the thoracic spine obtained using the right data from the CT chest study of the same day. Comparison: None There is osteopenia, mild/moderate multilevel degenerative spondylosis, and mild/moderate degenerative changes of both shoulders. Minimal 25% T5 and lesser degree T4 compression deformities of uncertain chronicity. Sagittal and coronal reformatted images demonstrates mild accentuation of the thoracic kyphosis. No subluxation. CT chest/abdomen/pelvis reported separately. Impression: Osteopenia and multilevel degenerative spondylosis. Minimal T4/T5 compression deformities of uncertain chronicity.
--- NOTE | 2021-05-01 08:56 | XRAY ---
Indication: Trauma following fall. Multiple contiguous axial images obtained through the chest without contrast. Comparison: None Lungs demonstrates moderate scattered peripheral subsegmental atelectasis/scarring greatest in the mid to lower lungs. Small inferior right upper and medial left lower lobe calcified granulomas. No suspicious pulmonary mass, infiltrate, effusion, or pneumothorax. Heart is enlarged. Aorta is minimally etcher sclerotic without aneurysmal dilatation. Tiny precarinal calcified node. No pathologic mediastinal lymphadenopathy. Bony thorax intact with osteopenia, mild/moderate multilevel degenerative spondylosis, and mild/moderate degenerative changes of both shoulders. Minimal 25% T5 and lesser degree T4 compression deformities of uncertain chronicity. Also acute cortical fractures involving the anterior lateral left 6/7 and lateral right 7/[address] abdomen/pelvis reported separately. Impression: 1. Cardiomegaly with scattered subsegmental atelectasis/scarring and old granulomatous disease. No acute cardiopulmonary abnormalities. 2. Left 6/7 and right 7/8 acute cortical rib fractures. 3. Osteopenia and multilevel degenerative spondylosis. Minimal T4/T5 compression deformities of uncertain chronicity.
--- NOTE | 2021-05-01 08:58 | XRAY ---
Indication: Trauma following fall. Multiple contiguous axial images obtained through the abdomen and pelvis without contrast. Comparison: January 26, 2017. CT chest reported separately. Noncontrasted stomach and bowel loops nonobstructed again with scattered colonic diverticulosis. No free fluid/air. Stable fatty liver and splenic calcified granulomas. Interval enlarging left mid renal exophytic cyst measuring 2 cm, previously 1 cm. Remaining liver, gallbladder, pancreas, spleen, adrenal glands, kidneys, ureters, and bladder are unremarkable for noncontrast exam. Again moderate scattered arteriosclerotic calcifications without AAA. Osseous structures remain demineralized again with mild/moderate multilevel thoracolumbar degenerative spondylosis and L3 Schmorl node. Impression: 1. Interval enlarging left renal exophytic cyst better evaluated with CT or MRI with contrast exam. 2. Again fatty liver, colonic diverticulosis, osteopenia, and multilevel degenerative spondylosis.
[2021-05-01 09:02] VITALS: PULSE 71
== END 2021-05-01 09:27 | disposition home or self-care (01) ==
LOC: ED 05:46
DX: S01.01XA Laceration without foreign body of scalp, initial encounter (principal); R51.9 Headache, unspecified; M54.2 Cervicalgia; S51.012A Laceration without foreign body of left elbow, initial encounter; S51.812A Laceration without foreign body of left forearm, initial encounter; S61.512A Laceration without foreign body of left wrist, initial encounter; R07.9 Chest pain, unspecified; R10.9 Unspecified abdominal pain; W19.XXXA Unspecified fall, initial encounter; Z79.899 Other long term (current) drug therapy; E11.9 Type 2 diabetes mellitus without complications; I10 Essential (primary) hypertension; E78.00 Pure hypercholesterolemia, unspecified; E03.9 Hypothyroidism, unspecified
CPT/HCPCS: 12002; 36000; 36415; 70450; 71250; 72125; 74176; 76376; 80053; 84484; 85025; 93005; 93041; 94760; 96374; 99284; J2270

== ENCOUNTER 2021-05-04 07:41 | Emergency (ER) | payer MEDICARE, OTHER ==
[2021-05-04] MEDS ORDERED: Zofran 4 MG/2 ML VIAL IV ONE (07:49)
[2021-05-04] MEDS ORDERED: MORPHINE SULFATE 2 MG INJ IV ONE (07:49)
[2021-05-04] MEDS ORDERED: BABY ASPIRIN 81 MG CHEW PO ONE (07:49)
[2021-05-04] MEDS ORDERED: Zofran 4 MG/2 ML VIAL ONE (08:00)
[2021-05-04] MEDS ORDERED: MORPHINE SULFATE 2 MG INJ ONE (08:00)
--- NOTE | 2021-05-04 08:05 | ERPHSYRPT ---
- History of Present Illness Time Seen by Provider: 05/04/21 07:49 Historian: patient, family Exam Limitations: no limitations Patient Subjective Stated Complaint: chest pain Triage Nursing Assessment: pt to ED c/o CP x 4 hours. rates 2/10 at rest, tender to palp, pt yells out when R upper chest is palpated. pt had fall last week and was seen in ED at that time, no signs of broken ribs on that exam. pt states this CP is like he has not felt before but it woke him from sleep 4 hrs ago. Physician History: 86 years old male with history of coronary artery disease, hypertension, tobacco abuse presented in the ER with chief complaint of right-sided chest pain sudden onset almost 4 hours prior to arrival, continuous, moderate to severe intensity, sharp nature, aggravated with movements palpation and position change. Patient reports having increasing pain with taking deep breaths. No fever chills or cough reported. Patient did take a fall few days ago and has scalp laceration and some other abrasions and contusions with a negative work-up for any internal injury Timing/Duration: hour(s) (4), constant, gradual onset, improved Activities at Onset: rest, sleep Quality: sharpness Location: other Chest Pain Radiation: no radiation Severity of Pain-Max: severe Severity of Pain-Current: moderate Modifying Factors: Worsens With: movement, palpation, change in position Associated Symptoms: denies symptoms Prior Chest Pain/Cardiac Workup: no prior chest pain Nitro Today/Relief: no nitro taken today Aspirin Treatment Today: no aspirin today Allergies/Adverse Reactions: No Known Drug Allergies Allergy (Verified 05/04/21 07:52) Home Medications: Allopurinol 300 mg [Zyloprim 300 mg] 300 mg PO UD 04/17/14 [History] Aspirin [Aspirin EC] 81 mg PO DAILY 04/17/14 [History] Isosorbide Mononitrate 30 mg [Imdur 30 MG] 30 mg PO DAILY 04/17/14 [Hi story] Metoprolol Tartrate 25 mg [Lopressor 25MG Tab] 25 mg PO DAILY 04/17/14 [History] Nitroglycerin 0.4 mg Tablet [Nitrostat 0.4 MG Tablet] 0.4 mg SL UD 04/17/14 [History] Pravastatin Sodium [Pravachol] 40 mg PO HS 04/17/14 [History] Levothyroxine Sodium 25 Mcg [Synthroid 25 Mcg] 100 mcg PO DAILY 06/07/14 [History] Tamsulosin HCl 0.4 mg [Flomax 0.4 MG] 0.4 mg PO DAILY 06/07/14 [History] Donepezil HCl 10 mg [Aricept 10 MG] 10 mg PO DAILY 01/28/21 [History] Lisinopril/Hydrochlorothiazide [Lisinopril-Hctz 20-12.5 mg Tab] 1 ea BID 01/28/21 [History] Hx Tetanus, Diphtheria Vaccination/Date Given: No Hx Influenza Vaccination/Date Given: Yes Hx Pneumococcal Vaccination/Date Given: No Immunizations Up to Date: No Travel Risk - International Travel Have you traveled outside of the country in past 3 weeks: No - Coronavirus Screening Are you exhibiting any of the following symptoms?: No Close contact with a COVID-19 positive Pt in past 14-21 Days: No - Vaccine Status Have you recieved a Covid-19 vaccination: Yes Spanish Instructor: Unknown - Vaccination Dates Dates if Unknown: 01/21/21 - Review of Systems Constitutional: No Symptoms Eyes: No Symptoms Ears, Nose, & Throat: No Symptoms Respiratory: No Symptoms Cardiac: Chest Pain Abdominal/Gastrointestinal: No Symptoms Genitourinary Symptoms: No Symptoms Skin: Skin Lesions Neurological: No Symptoms Psychological: No Symptoms Endocrine: No Symptoms Hematologic/Lymphatic: No Symptoms Immunological/Allergic: No Symptoms - Past Medical History Pertinent Past Medical History: Yes Neurological History: Dementia ENT History: Cataracts Cardiac History: High Cholesterol, Hypertension Respiratory History: No Pertinent History Endocrine Medical History: Diabetes Type II, Hypothyroidism Musculoskeletal History: Arthritis GI Medical History: Diverticulosis, GERD, Stomach Cancer, Other History: Other Psycho-Social History: No Pertinent History Male Reproductive Disorders: Prostate Problems Other Medical History: lymphoma, 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, patient states "there is something wrong with my bladder, he has been working on it for 6 months", can not report what specifically his condition is - Past Surgical History Past Surgical History: Yes Neuro Surgical History: No Pertinent History Cardiac: Cardiac Catheterization, Cardiac Stent Respiratory: No Pertinent History Gastrointestinal: Other Genitourinary: No Pertinent History Musculoskeletal: No Pertinent History Male Surgical History: No Pertinent History Other Surgical History: cvl port placed.small bowel resection - Social History Smoking Status: Current every day smoker Exposure to second hand smoke: No Drug Use: none Patient Lives Alone: No - Nursing Vital Signs Nursing Vital Signs: Initial Vital Signs Temperature 97.8 F 05/04/21 07:44 Pulse Rate 63 05/04/21 07:44 Respiratory Rate 18 05/04/21 07:44 Blood Pressure 148/71 05/04/21 07:44 O2 Sat by Pulse Oximetry 97 05/04/21 07:44 Pain Scale Pain Intensity 0 - Physical Exam General Appearance: no apparent distress, alert Eye Exam: PERRL/EOMI, eyes nml inspection Ears, Nose, Throat Exam: normal ENT inspection, pharynx normal Neck Exam: normal inspection, non-tender, full range of motion Respiratory Exam: normal breath sounds, chest tenderness (Right lower anterior lateral chest wall), lungs clear Cardiovascular Exam: regular rate/rhythm, normal heart sounds Gastrointestinal/Abdomen Exam: soft, normal bowel sounds, No tenderness Back Exam: normal inspection, normal range of motion Extremity Exam: normal inspection, normal range of motion, other (Old abrasions) Neurologic Exam: alert, oriented x 3, cooperative Skin Exam: normal color SpO2 Interpretation: normal SpO2: 97 O2 Delivery: Room Air - Course EKG Interpreted by Me: RATE (64), Sinus Rhythm, NORMAL AXIS, NORMAL INTERVALS, Non-specific ST Changes, Other (PVCs) Ordered Tests: Medication Summary Discontinued Medications Generic Name Dose Route Start Last Admin Trade Name Chuyq PRN Reason Stop Dose Admin Aspirin 324 mg 05/04/21 07:49 05/04/21 07:55 Baby Aspirin 81 Mg Chew PO 05/04/21 07:50 324 mg STAT ONE Administration Morphine Sulfate 2 mg 05/04/21 07:49 05/04/21 08:01 Morphine Sulfate 2 Mg Inj IV 05/04/21 07:50 2 mg STAT ONE Administration Morphine Sulfate Confirm 05/04/21 08:00 Morphine Sulfate 2 Mg Inj Administered 05/04/21 08:01 Dose 2 mg .ROUTE .STK-MED ONE Ondansetron HCl 4 mg 05/04/21 07:49 05/04/21 08:00 Zofran 4 Mg/2 Ml Vial IV 05/04/21 07:50 4 mg STAT ONE Administration Ondansetron HCl Confirm 05/04/21 08:00 Zofran 4 Mg/2 Ml Vial Administered 05/04/21 08:01 Dose 4 mg .ROUTE .STK-MED ONE Lab/Rad Data: Laboratory Result Diagrams 05/04/21 08:04 05/04/21 08:04 Laboratory Results 05/04/21 05/04/21 05/04/21 Range/Units 11: 08:04 08:04 WBC (4.0-10.5) K/mm3 RBC (4.1-5.6) M/mm3 Hgb (12.5-18.0) gm/dl Hct (42-50) % MCV (78-100) fl MCH (26-32) pg MCHC (32-36) g/dl RDW (11.5-14.0) % Plt Count (150-450) K/mm3 MPV (7.5-11.0) fl Gran % (36.0-66.0) % Eos # (Auto) (0-0.5) Absolute Lymphs (auto) (1.0-4.6) Absolute Monos (auto) (0.0-1.3) Lymphocytes % (24.0-44.0) % Monocytes % (0.0-12.0) % Eosinophils % (0.00-5.0) % Basophils % (0.0-0.4) % Absolute Granulocytes (1.4-6.9) Basophils # (0-0.4) D-Dimer (215-500) ng/mL Sodium 136 L (137-145) mmol/L Potassium 3.8 (3.5-5.1) mmol/L Chloride 105 (98-107) mmol/L Carbon Dioxide 22 (22-30) mmol/L Anion Gap 12.8 (5-15) MEQ/L BUN 16 (9-20) mg/dL Creatinine 1.00 (0.66-1.25) mg/dL Estimated GFR > 60.0 ML/MIN Glucose 120 H (74-106) mg/dL Calcium 9.2 (8.4-10.2) mg/dL Total Bilirubin 0.80 (0.2-1.3) mg/dL AST 23 (17-59) U/L ALT 18 (0-50) U/L Alkaline Phosphatase 77 (38-126) U/L Troponin I < 0.012 < 0.012 (0.000-0.034) ng/mL NT-Pro-B Natriuret Pep 1220 (0-1800) pg/mL Serum Total Protein 6.0 L (6.3-8.2) g/dL Albumin 3.8 (3.5-5.0) g/dL 05/04/21 05/04/21 Range/Units 08:04 07:45 WBC 9.9 (4.0-10.5) K/mm3 RBC 4.46 (4.1-5.6) M/mm3 Hgb 13.5 (12.5-18.0) gm/dl Hct 41.5 L (42-50) % MCV 93.0 (78-100) fl MCH 30.3 (26-32) pg MCHC 32.5 (32-36) g/dl RDW 14.9 H (11.5-14.0) % Plt Count 154 (150-450) K/mm3 MPV 9.9 (7.5-11.0) fl Gran % 76.6 H (36.0-66.0) % Eos # (Auto) 0.21 (0-0.5) Absolute Lymphs (auto) 1.42 (1.0-4.6) Absolute Monos (auto) 0.63 (0.0-1.3) Lymphocytes % 14.4 L (24.0-44.0) % Monocytes % 6.4 (0.0-12.0) % Eosinophils % 2.1 (0.00-5.0) % Basophils % 0.5 (0.0-0.4) % Absolute Granulocytes 7.54 H (1.4-6.9) Basophils # 0.05 (0-0.4) D-Dimer 2337 H* (215-500) ng/mL Sodium (137-145) mmol/L Potassium (3.5-5.1) mmol/L Chloride (98-107) mmol/L Carbon Dioxide (22-30) mmol/L Anion Gap (5-15) MEQ/L BUN (9-20) mg/dL Creatinine (0.66-1.25) mg/dL Estimated GFR ML/MIN Glucose (74-106) mg/dL Calcium (8.4-10.2) mg/dL Total Bilirubin (0.2-1.3) mg/dL AST (17-59) U/L ALT (0-50) U/L Alkaline Phosphatase (38-126) U/L Troponin I (0.000-0.034) ng/mL NT-Pro-B Natriuret Pep (0-1800) pg/mL Serum Total Protein (6.3-8.2) g/dL Albumin (3.5-5.0) g/dL - Progress Progress: improved Air Movement: good Progress Note: 05/04/21 13:12 86 years old is evaluated for right-sided chest pain with a recent fall. He is given 2 mg morphine x1 and on reevaluation feeling better. Chest x-ray showed questionable infiltrative process on the right side. EKG showed normal sinus rhythm with no acute ST elevation. Negative troponins x2 patient had elevated D-dimer and CTA is negative for PE or any obvious pneumonia but does have multiple rib fracture on the right side sevenths/8/9 and left sixth and seventh ribs fracture some of which are displaced. Work-up otherwise is negative. With his multiple rib fractures and his age I have recommended observation admission for better pain control but he does not want to stay in the hospital at all patient wants oral pain medication and go home. I have discussed with stepdaughter who brought patient and patient does have a walker at home and discussed the side effects of pain medication in the process of healing rib fractures, deep breathing exercises to avoid pneumonia/atelectasis. Discussed signs symptoms of worsening needing return to ER which do seem understanding. Stable for discharge. Blood Culture(s) Obtained: No Antibiotics given: No Counseled pt/family regarding: lab results, diagnosis, need for follow-up, rad results - Departure Departure Disposition: Home Clinical Impression: Multiple fractures of ribs of both sides Qualifiers: Encounter type: initial encounter Fracture type: closed Qualified Code(s): S22.43XA - Multiple fractures of ribs, bilateral, initial encounter for closed fracture Condition: Stable Critical Care Time: No Referrals: GRACE MCLEOD [Primary Care Provider] - (1-2 days for reevaluation) Instructions: Rib Fracture (DC) Additional Instructions: Take pain medications only as needed. Use walker/cane all the time for ambulation to avoid a fall. Do deep breathing exercises to avoid development of atelectasis/pneumonia. Follow-up with your primary care physician for reevaluation. Return to ER for increasing pain, difficulty breathing, fever chills etc. Prescriptions: Hydrocodone/APAP 5/325 [[place] 5/325 mg] 1 each PO Q6H PRN PRN #12 tablet MDD 4 PRN Reason: Pain
[2021-05-04 08:06] LABS: Absolute Neutrophil Ct (ANC) 7.54 (1.4-6.9); BASOPHIL % 0.5 % (0.0-0.4); Basophil (Absolute #) 0.05 (0-0.4); Eosinophil % 2.1 % (0.00-5.0); Eosinophil (Absolute #) 0.21 (0-0.5); Hematocrit 41.5 % (42-50); Hemoglobin 13.5 gm/dl (12.5-18.0); Lymphocyte (Absolute #) 1.42 (1.0-4.6); Lymphocytes % 14.4 % (24.0-44.0); Mean Corpuscular Hemoglobin 30.3 pg (26-32); Mean Corpuscular Hgb Concent. 32.5 g/dl (32-36); Mean Platelet Volume 9.9 fl (7.5-11.0); Monocyte (Absolute #) 0.63 (0.0-1.3); Monocytes % 6.4 % (0.0-12.0); Neutrophil % 76.6 % (36.0-66.0); Platelet Count 154 K/mm3 (150-450); Red Blood Count 4.46 M/mm3 (4.1-5.6); Red Cell Distribution Width 14.9 % (11.5-14.0); White Blood Count 9.9 K/mm3 (4.0-10.5)
[2021-05-04 08:29] LABS: ALBUMIN 3.8 g/dL (3.5-5.0); ALKALINE PHOSPHATASE 77 U/L (38-126); ANION GAP 12.8 MEQ/L (5-15); BLOOD UREA NITROGEN 16 mg/dL (9-20); CHLORIDE 105 mmol/L (98-107); Calcium 9.2 mg/dL (8.4-10.2); Carbon Dioxide 22 mmol/L (22-30); EST GLOMERULAR FILTRATION RATE > 60.0 ML/MIN; Glucose 120 mg/dL (74-106); NT PRO BNP 1220 pg/mL (0-1800); Potassium 3.8 mmol/L (3.5-5.1); SGOT/AST 23 U/L (17-59); SGPT/ALT 18 U/L (0-50); SODIUM 136 mmol/L (137-145)
[2021-05-04 13:46] VITALS: BP 126/56; PULSE 66
--- NOTE | 2021-05-04 18:13 | XRAY ---
Indication: Chest pain. Elevated d-dimer. Multiple contiguous axial images obtained through the chest using 100 cc Isovue 370 contrast and PE protocol. Comparison: May 01, 2021. There is good opacification of the pulmonary arteries to include the lobar and segmental branches. However mild respiration artifact limits evaluation of the more distal lobar and segmental branches. No obvious central pulmonary embolus. Heart remains borderline enlarged. Aorta remains minimally arteriosclerotic without aneurysm/dissection. Stable tiny precarinal calcified node. No pathologic mediastinal/hilar lymphadenopathy. Lungs again demonstrate peripheral subsegmental atelectasis/scarring and small right upper/left lower lobe calcified granulomas. New tiny bibasilar effusions. Bony thorax again demonstrates osteopenia, multilevel degenerative spondylosis, T4/T5 compression deformities, left 6/7 acute rib fractures, and right 7/[address] abdomen reported 3 days ago. Impression: 1. Respiration artifact limits evaluation for pulmonary embolus. 2. Again bilateral acute rib fractures with new tiny bilateral hemothoraces. No pneumothorax. 3. Again borderline cardiomegaly, scattered atelectasis/scarring, chronic bony findings, and old granulomatous disease. Comment: Preliminary interpretation made by [facility]. No critical discrepancy
--- NOTE | 2021-05-04 18:15 | XRAY ---
Indication: Chest pain. Status post fall. Comparison: April 17, 2014. Portable chest underinflated with new CT proven bibasilar atelectasis/tiny hemothoraces/bilateral rib fractures. Heart not enlarged. Remaining bony thorax intact again with osteopenia and degenerative changes.
[2021-05-08 00:31] VITALS: O2SAT 97
== END 2021-05-04 13:47 | disposition home or self-care (01) ==
LOC: ED 07:41
DX: S22.43XA Multiple fractures of ribs, bilateral, initial encounter for closed fracture (principal); W19.XXXS Unspecified fall, sequela; I10 Essential (primary) hypertension; I25.10 Atherosclerotic heart disease of native coronary artery without angina pectoris; Z72.0 Tobacco use; Z79.899 Other long term (current) drug therapy
CPT/HCPCS: 36000; 36415; 71045; 71260; 80053; 83880; 84484; 85025; 85379; 93005; 93041; 96374; 96375; 99284; J2270; J2405; A9270-GY

== ENCOUNTER 2021-10-12 19:16 | Emergency (ER) | payer MEDICARE, OTHER ==
[2021-10-12] MEDS ORDERED: Sodium Chloride 0.9% 1000 ML 1,000 ML IV SCH (19:30)
[2021-10-12] MEDS ORDERED: Adacel Vial IM ONE ×2 (19:34→19:50)
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
[2021-10-12] MEDS ORDERED: Sodium Chloride 0.9% 1000 ML 1,000 ML ONE (19:49)
[2021-10-12 20:16] LABS: Hematocrit 49.6 % (42-50); Hemoglobin 16.3 gm/dl (12.5-18.0); Mean Cell Volume 90.3 fl (78-100); Mean Corpuscular Hemoglobin 29.7 pg (26-32); Mean Corpuscular Hgb Concent. 32.9 g/dl (32-36); Mean Platelet Volume 9.7 fl (7.5-11.0); Platelet Count 251 K/mm3 (150-450); Red Blood Count 5.49 M/mm3 (4.1-5.6); Red Cell Distribution Width 15.3 % (11.5-14.0); White Blood Count 13.5 K/mm3 (4.0-10.5)
[2021-10-12 20:43] LABS: ALBUMIN 4.6 g/dL (3.5-5.0); ANION GAP 14.7 MEQ/L (5-15); BILIRUBIN,TOTAL 1.1 mg/dL (0.2-1.3); Calcium 9.3 mg/dL (8.4-10.2); Creatinine 1 1.41 mg/dL (0.66-1.25); EST GLOMERULAR FILTRATION RATE 50.7 ML/MIN; Total Protein 6.8 g/dL (6.3-8.2)
[2021-10-12 21:27] VITALS: O2SAT 99
[2021-10-12 21:32] VITALS: BP 124/67; PULSE 69
[2021-10-12 21:51] LABS: Appearance CLEAR (CLEAR); Bilirubin NEGATIVE (NEGATIVE); Blood NEGATIVE Ery/ul (0-5); Glucose NEGATIVE (NEGATIVE); Ketones NEGATIVE (NEGATIVE); Leukocyte Esterase TRACE (NEGATIVE); Mucus SLIGHT /HPF (NEGATIVE); Nitrite NEGATIVE (NEGATIVE); Protein,Urine Dip 100 (Negative); Specific Gravity 1.023 (1.005-1.025); Urobilinogen NEGATIVE mg/dL (0-1)
[2021-10-12 21:53] LABS: Bacteria RARE /HPF (NEGATIVE)
[2021-10-12 22:34] LABS: Lymphocytes 18 % (24-44); Monocyte 1 % (0.0-12.0); Neutrophils 81 % (36.-66.); Platelet Estimate NORMAL (NORMAL); Total Cells Counted 100
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
== END 2021-10-12 21:55 | disposition short-term general hospital (02) ==
LOC: ED 19:16
DX: S22.43XA Multiple fractures of ribs, bilateral, initial encounter for closed fracture (principal); S26.91XA Contusion of heart, unspecified with or without hemopericardium, initial encounter; V87.2XXA Person injured in collision between car and pick-up truck or van (traffic), initial encounter; W22.10XA Striking against or struck by unspecified automobile airbag, initial encounter; Y92.410 Unspecified street and highway as the place of occurrence of the external cause; R77.8 Other specified abnormalities of plasma proteins; M62.838 Other muscle spasm; R41.0 Disorientation, unspecified; E78.5 Hyperlipidemia, unspecified; I10 Essential (primary) hypertension; E11.9 Type 2 diabetes mellitus without complications; F03.90 Unspecified dementia, unspecified severity, without behavioral disturbance, psychotic disturbance, mood disturbance, and anxiety; Z72.0 Tobacco use; Z79.899 Other long term (current) drug therapy
CPT/HCPCS: 36000; 36415; 70450; 71250; 72125; 74176; 80053; 81001; 83605; 84484; 85025; 87086; 90471; 90715; 93005; 99285

== ENCOUNTER 2021-11-30 11:54 | Emergency (ER) | payer MEDICARE, OTHER ==
[2021-11-30 12:10] VITALS: BP 131/51
[2021-11-30] MEDS ORDERED: TORAdol 30 mg Injection IM ONE (12:22)
[2021-11-30] MEDS ORDERED: TORAdol 30 mg Injection ONE (12:27)
--- NOTE | 2021-11-30 12:32 | ERPHSYRPT ---
- History of Present Illness Source: patient Exam Limitations: other (Hearing impaired/Poor historian) Patient Subjective Stated Complaint: pt for right coccyx pain for 2-3 days now getting worse, no injury, Triage Nursing Assessment: pt alert, resp easy, face mask applied, skin w/d/p, no injury noted Physician History: 86 yo wm cc of R anterior hip/buttock pain x 3 days. Pain is sharp and worse w movement/weight bearing. He denies fall/trauma and blames the pain on his gout. He does have some mild dysuria but denies hematuria/fever. Abdominal pain/N/V/D/chest pain/dyspnea all denies. Method of Injury: unknown Occurred: days ago (3 days ago) Quality: sharpness Severity of Pain-Max: moderate Severity of Pain-Current: moderate Lower Extremities Pain: hip: right Modifying Factors: Improves With: movement Associated Symptoms: other (Painful weight bearing) Allergies/Adverse Reactions: No Known Drug Allergies Allergy (Verified 11/30/21 12:10) Home Medications: Allopurinol 300 mg [Zyloprim 300 mg] 300 mg PO UD 04/17/14 [History] Aspirin [Aspirin EC] 81 mg PO DAILY 04/17/14 [History] Isosorbide Mononitrate 30 mg [Imdur 30 MG] 30 mg PO DAILY 04/17/14 [History] Metoprolol Tartrate 25 mg [Lopressor 25MG Tab] 25 mg PO DAILY 04/17/14 [History] Nitroglycerin 0.4 mg Tablet [Nitrostat 0.4 MG Tablet] 0.4 mg UD 04/17/14 [History] Pravastatin Sodium [Pravachol] 40 mg PO 04/17/14 [History] Levothyroxine Sodium 25 Mcg [Synthroid 25 Mcg] 100 mcg PO DAILY 06/07/14 [History] Tamsulosin HCl 0.4 mg [Flomax 0.4 MG] 0.4 mg PO DAILY 06/07/14 [History] Donepezil HCl 10 mg [Aricept 10 MG] 10 mg PO DAILY 01/28/21 [History] Lisinopril/Hydrochlorothiazide [Lisinopril-Hctz .5 mg Tab] 1 ea BID 01/28/21 [History] Hx Tetanus, Diphtheria Vaccination/Date Given: No Hx Influenza Vaccination/Date Given: Yes Hx Pneumococcal Vaccination/Date Given: No Immunizations Up to Date: Yes Travel Risk - International Travel Have you traveled outside of the country in past 3 weeks: No - Coronavirus Screening Are you exhibiting any of the following symptoms?: No Close contact with a COVID-19 positive Pt in past 14-21 Days: No - Vaccine Status Have you recieved a Covid-19 vaccination: Yes [employer]: Unknown - Vaccination Dates Date of 2cond Vaccination (if applicable): 2020 Dates if Unknown: 01/21/21 - Review of Systems Constitutional: No Symptoms Eyes: No Symptoms Ears, Nose, & Throat: No Symptoms Respiratory: No Symptoms Cardiac: No Symptoms Abdominal/Gastrointestinal: No Symptoms Genitourinary Symptoms: No Symptoms, Dysuria Musculoskeletal: Arthralgias (R hip) Skin: No Symptoms Neurological: No Symptoms Psychological: No Symptoms Endocrine: No Symptoms Hematologic/Lymphatic: No Symptoms Immunological/Allergic: No Symptoms - Past Medical History Pertinent Past Medical History: Yes Neurological History: Dementia ENT History: Cataracts Cardiac History: High Cholesterol, Hypertension Respiratory History: No Pertinent History Endocrine Medical History: Diabetes Type II, Hypothyroidism Musculoskeletal History: Arthritis GI Medical History: Diverticulosis, GERD, Stomach Cancer, Other History: Other Psycho-Social History: No Pertinent History Male Reproductive Disorders: Prostate Problems Other Medical History: lymphoma, 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, patient states "there is something wrong with my bladder, he has been working on it for 6 months", can not report what specifically his condition is - Past Surgical History Past Surgical History: Yes Neuro Surgical History: No Pertinent History Cardiac: Cardiac Catheterization, Cardiac Stent Respiratory: No Pertinent History Gastrointestinal: Other Genitourinary: No Pertinent History Musculoskeletal: No Pertinent History Male Surgical History: No Pertinent History Other Surgical History: cvl port placed.small bowel resection - Social History Smoking Status: Current some day smoker Exposure to second hand smoke: Yes Drug Use: none Patient Lives Alone: No Significant Family History: no pertinent family hx - Nursing Vital Signs Nursing Vital Signs: Initial Vital Signs Temperature 97.7 F 11/30/21 12:03 Pulse Rate 79 11/30/21 12:03 Respiratory Rate 20 11/30/21 12:03 Blood Pressure 131/51 11/30/21 12:03 O2 Sat by Pulse Oximetry 97 11/30/21 12:03 Pain Scale Pain Intensity [Right Sacrum] 8 Pain Intensity 4 Mild hypertension - Physical Exam General Appearance: no apparent distress (In pain) Eyes, Ears, Nose, Throat Exam: normal ENT inspection, TMs normal, pharynx normal, moist mucous membranes Neck Exam: normal inspection, non-tender, supple, full range of motion, No Brudzinski, No Kernig's, No meningismus, No carotid bruit Cardiovascular/Respiratory Exam: chest non-tender, regular rate/rhythm, heart sounds normal, rales (B bases) Gastrointestinal/Abdominal Exam: non-tender, soft Back Exam: normal inspection, normal range of motion, No CVA tenderness Hips Exam: right: bone tenderness (R anterior hip pain) Legs Exam: bilateral leg: non-tender, normal inspection, normal range of motion Knees Exam: bilateral knee: non-tender, normal inspection, normal range of motion, no evidence of injury Ankle Exam: bilateral ankle: non-tender, normal inspection, normal range of motion Foot Exam: bilateral foot: non-tender, normal inspection, normal range of motion, no evidence of injury Neuro/Tendon Exam: normal sensation, normal motor functions, normal tendon functions, responds to pain Mental Status Exam: alert, oriented x 3, cooperative Skin Exam: normal color, warm, dry SpO2 Interpretation: normal SpO2: 97 O2 Delivery: Room Air - Course Nursing assessment & vital signs reviewed: Yes - CT Exams Pelvis CT Interpretation: Tele-radiologist Report (Nothing acute/Scoliosis/Remote trauma R ischium) Ordered Tests: Active Orders 24 hr Category Date Time Status PELVIS WITHOUT CONTRAST [CT] Stat Exams 11/30/21 12:35 Taken Medication Summary Discontinued Medications Generic Name Dose Route Start Last Admin Trade Name Yeison PRN Reason Stop Dose Admin Ketorolac Tromethamine 15 mg 11/30/21 12:22 11/30/21 12:29 Ketorolac Tromethamine 30 Mg/Ml Inj IM 11/30/21 12:23 15 mg STAT ONE Administration Ketorolac Tromethamine Confirm 11/30/21 12:27 Ketorolac Tromethamine 30 Mg/Ml Inj Administered 11/30/21 12:28 Dose 30 mg .ROUTE .[facility]-MED ONE Lab/Rad Data: Laboratory Results 11/30/21 Range/Units 14:15 Urinalys Dipstick Clnc MAIN LAB Urine Color ORANGE (YELLOW) Urine Appearance SLIGHTLY CLOUDY (CLEAR) Urine pH 6.0 (5-6) Ur Specific [place] >=1.030 (1.005-1.025) POC Urine Protein Conf 30 (Negative) Urine Ketones NEGATIVE (NEGATIVE) Urine Nitrite NEGATIVE (NEGATIVE) Urine Bilirubin SMALL (NEGATIVE) Urine Urobilinogen 0.2 (0-1) mg/dL Urine Leukocytes TRACE (NEGATIVE) Urine WBC (Auto) 16-25 (0-5) /HPF Urine RBC (Auto) 3-5 (0-2) /HPF U Epithel Cells (Auto) FEW (FEW) /HPF Urine Bacteria (Auto) NONE SEEN (NEGATIVE) /HPF Urine RBC NEGATIVE (0-5) [place] Urine Mucus (Auto) MODERATE (NEGATIVE) /HPF Ur Culture Indicated? NO Urine Glucose NEGATIVE (NEGATIVE) mg/dL - Progress Progress: improved Progress Note: 11/30/21 14:04 15mg IM Toradol w improvement Counseled pt/family regarding: diagnosis, need for follow-up, rad results - Departure Departure Disposition: Home Clinical Impression: Hip pain, right, UTI (urinary tract infection) Condition: Stable Critical Care Time: No Referrals: GRACE SRINIVASAN [Primary Care Provider] - Follow up/PCP as directed Instructions: Urinary Tract Infection, Adult (DC), Hip Pain (DC) Additional Instructions: Mobic as needed for pain Macrobid twice a day for 5 days for urinary tract infection Fluids Follow up with your family MD Return to ER for increasing pain or temperature greater than 100.5 Prescriptions: Nitrofurantoin Monohyd/M-Cryst [Macrobid 100 mg Capsule] 100 mg PO BID 5 Days #10 Meloxicam [Mobic] 15 mg PO DAILY PRN #30 tablet PRN Reason: Pain
[2021-11-30 14:15] LABS: Appearance SLIGHTLY CLOUDY (CLEAR); Bilirubin SMALL (NEGATIVE); Dipstick done @ ? MAIN LAB; Glucose NEGATIVE (NEGATIVE); Ketones NEGATIVE (NEGATIVE); Nitrite NEGATIVE (NEGATIVE); Protein,Urine Dip 30 (Negative); RBC NEGATIVE Ery/ul (0-5); Specific Gravity >=1.030 (1.005-1.025); Urobilinogen 0.2 mg/dL (0-1)
[2021-11-30 14:16] LABS: Mucus MODERATE /HPF (NEGATIVE)
[2021-11-30 14:17] LABS: Bacteria NONE SEEN /HPF (NEGATIVE); Epithelial Cells FEW /HPF (FEW)
[2021-11-30 14:59] VITALS: PULSE 70
[2021-11-30 15:14] VITALS: O2SAT 97
--- NOTE | 2021-11-30 19:01 | XRAY ---
Indication: Right hip pain. No known injury. Multiple contiguous axial images obtained through the pelvis with special attention to the osseous structures. Sagittal and coronal reformatted images obtained. Comparison: October 12, 2021. Again osteopenia and moderate degenerative changes of the visualized lower lumbar spine. No acute fracture, dislocation, or suspicious bony lesions. Visualized noncontrasted soft tissues again demonstrates colonic diverticulosis, tiny bilateral fatty inguinal hernias, and scattered vascular calcifications. No free fluid/air. Impression: Stable osteopenia, lower lumbar degenerative spondylosis, colonic diverticulosis, bilateral fatty inguinal hernias, and scattered arteriosclerotic calcifications. No new/acute abnormalities. Comment: Preliminary interpretation made by [facility]. No critical discrepancy.
== END 2021-11-30 14:59 | disposition home or self-care (01) ==
LOC: ED 11:54
DX: M25.551 Pain in right hip (principal); N39.0 Urinary tract infection, site not specified; R30.0 Dysuria; E78.5 Hyperlipidemia, unspecified; I10 Essential (primary) hypertension; E11.9 Type 2 diabetes mellitus without complications; Z72.0 Tobacco use; Z79.899 Other long term (current) drug therapy
CPT/HCPCS: 72192; 81015; 96372; 99284; J1885

== ENCOUNTER 2023-05-13 15:53 | Emergency (ER) | payer MEDICARE, OTHER ==
--- NOTE | 2023-05-13 15:59 | ERPHSYRPT ---
- History of Present Illness Time Seen by Provider: 05/13/23 15:58 Source: patient, family Exam Limitations: no limitations Physician History: This is an 88-year-old white male patient who presents with complaint of urinary retention and dribbling of urine. He only voided a small amount of urine 2 hours prior to arrival. He does have some suprapubic pressure and discomfort. Patient has prostate problems and they have been working on trying to improve this. Patient has a history of hypothyroidism, hypertension, gout, hyperlipidemia, gastroesophageal reflux disease, dementia, coronary disease (cardiac catheterization and cardiac stent) and arthritis. He currently has no chest pain or shortness of breath. Timing/Duration: today Activites at Onset: none Quality: pressure (Suprapubic region) Onset Location: suprapubic (Suprapubic fullness and pressure) Pain Radiation: none Severity of Pain-Max: mild (To moderate) Severity of Pain-Current: mild (To moderate) Associated Symptoms: abdominal pain (Prepubic pressure), other (Urinary retention) Prior abdominal problems: none Sexual intercourse history: non-contributory Allergies/Adverse Reactions: No Known Drug Allergies Allergy (Verified 05/13/23 16:18) Home Medications: Allopurinol 300 mg [Zyloprim 300 mg] 300 mg PO UD 04/17/14 [History] Isosorbide Mononitrate 30 mg [Imdur 30 MG] 30 mg PO DAILY 04/17/14 [History] Metoprolol Tartrate 25 mg [Lopressor 25MG Tab] 25 mg PO DAILY 04/17/14 [History] Nitroglycerin 0.4 mg Tablet [Nitrostat 0.4 MG Tablet] 0.4 mg SL UD 04/17/14 [History] Pravastatin Sodium [Pravachol] 40 mg PO HS 04/17/14 [History] Levothyroxine Sodium 25 Mcg [Synthroid 25 Mcg] 100 mcg PO DAILY 06/07/14 [History] Tamsulosin HCl 0.4 mg [Flomax 0.4 MG] 0.4 mg PO DAILY 06/07/14 [History] Lisinopril/Hydrochlorothiazide [Lisinopril-Hctz 20-12.5 mg Tab] 1 ea BID 01/28/21 [History] Aspirin 81 gm Chew [Baby Aspirin 81 mg Chew] 81 mg PO DAILY 05/13/23 [History] Hx Tetanus, Diphtheria Vaccination/Date Given: No Hx Influenza Vaccination/Date Given: Yes Hx Pneumococcal Vaccination/Date Given: No Travel Risk - International Travel Have you traveled outside of the country in past 3 weeks: No - Coronavirus Screening Are you exhibiting any of the following symptoms?: No Close contact with a COVID-19 positive Pt in past 14-21 Days: No - Vaccine Status Have you recieved a Covid-19 vaccination: Yes Flight Line Mechanic: Unknown - Vaccination Dates Date of 2cond Vaccination (if applicable): 2020 Dates if Unknown: 01/21/21 - Past Medical History Pertinent Past Medical History: Yes Neurological History: Dementia ENT History: Cataracts Cardiac History: High Cholesterol, Hypertension Respiratory History: No Pertinent History Endocrine Medical History: Diabetes Type II, Hypothyroidism Musculoskeletal History: Arthritis GI Medical History: Diverticulosis, GERD, Stomach Cancer, Other History: Other Psycho-Social History: No Pertinent History Male Reproductive Disorders: Prostate Problems Other Medical History: lymphoma, 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, patient states "there is something wrong with my bladder, he has been working on it for 6 months", can not report what specifically his condition is - Past Surgical History Past Surgical History: Yes Neuro Surgical History: No Pertinent History Cardiac: Cardiac Catheterization, Cardiac Stent Respiratory: No Pertinent History Gastrointestinal: Other Genitourinary: No Pertinent History Musculoskeletal: No Pertinent History Male Surgical History: No Pertinent History Other Surgical History: cvl port placed.small bowel resection - Social History Smoking Status: Current some day smoker Exposure to second hand smoke: Yes Drug Use: none Patient Lives Alone: No Significant Family History: no pertinent family hx - Review of Systems Constitutional: No Symptoms Eyes: No Symptoms Ears, Nose, & Throat: No Symptoms Respiratory: No Symptoms Cardiac: No Symptoms Abdominal/Gastrointestinal: Abdominal Pain (Mild to moderate suprapubic) Genitourinary Symptoms: Urinary Retention Musculoskeletal: No Symptoms Skin: No Symptoms Neurological: No Symptoms Psychological: No Symptoms Endocrine: No Symptoms Hematologic/Lymphatic: No Symptoms Immunological/Allergic: No Symptoms All Other Systems: Reviewed and Negative - Nursing Vital Signs Nursing Vital Signs: Initial Vital Signs Temperature 97 F 05/13/23 16:27 Pulse Rate 79 05/13/23 16:27 Respiratory Rate 18 05/13/23 16:27 Blood Pressure 141/67 05/13/23 16:27 O2 Sat by Pulse Oximetry 97 05/13/23 16:27 Pain Scale Pain Intensity 4 - Physical Exam General Appearance: no apparent distress, alert Eye Exam: PERRL/EOMI, eyes nml inspection Ears, Nose, Throat Exam: normal ENT inspection, moist mucous membranes Neck Exam: normal inspection, non-tender, supple, full range of motion Respiratory Exam: airway intact, No chest tenderness, No respiratory distress Gastrointestinal/Abdomen Exam: tenderness (Mild suprapubic pressure/discomfort.) Rectal Exam: not done Back Exam: normal inspection, normal range of motion, No CVA tenderness, No vertebral tenderness Extremity Exam: normal inspection, normal range of motion, pelvis stable Neurologic Exam: alert, oriented x 3, cooperative, 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, normal mood/affect, nml cerebellar function, nml station & gait, sensation nml Skin Exam: normal color, warm, dry Lymphatic Exam: No adenopathy SpO2 Interpretation: normal O2 Delivery: Room Air - Course Nursing assessment & vital signs reviewed: Yes Ordered Tests: Active Orders 24 hr Category Date Time Status Olsen [Catheter-Jal Olsen] STAT Care 05/13/23 16:19 Active CULTURE,URINE Stat Lab 05/13/23 16:22 Received UA W/RFX UR CULTURE Stat Lab 05/13/23 16:22 Completed Lab/Rad Data: Laboratory Results 05/13/23 Range/Units 16:22 Urine Color Yellow (Yellow) Urine Appearance Turbid A (Clear) Urine pH 5.5 (4.6-8.0) Ur Specific [place] 1.025 (1.005-1.030) Urine Protein 30 (Negative) Urine Glucose (UA) Negative (Negative) mg/dL Urine Ketones Negative (Negative) Urine Blood Negative (Negative) Urine Nitrite Negative (Negative) Urine Bilirubin Negative (Negative) Urine Urobilinogen 0.2 (0.2) mg/dL Ur Leukocyte Esterase Moderate A (Negative) U Hyaline Cast (Auto) 20-50 (0-2) /LPF Urine Microscopic RBC 0-2 (0-5) /HPF Urine Microscopic WBC 51-100 A (0-5) /HPF Ur Epithelial Cells None Seen (None Seen) /HPF Urine Bacteria None Seen (None Seen) /HPF Urine Culture Reflexed ORDERED SEPARATELY (NO) - Progress Progress: improved, re-examined Progress Note: 05/13/23 17:35 This patient's medical issue is 1 of low complexity. Level complexity in the work-up performed is based on review of the patient's past medical history, review of the patient's medication list, review of the patient's drug allergy list, history of present illness and physical findings on examination. The work-up in this patient is to place a Olsen catheter. We also sent the urine for urinalysis. I reviewed the results of the urinalysis. Patient definitely has a urinary tract infection. We will give him Levaquin 500 mg orally now and then send a prescription for additional antibiotics for 7 days to his pharmacy remotely. Counseled pt/family regarding: lab results, diagnosis, need for follow-up Medical Desision Making - Independent Historian Additional History obtained from: Family - Diagnostic Testing Diagnostic test were ordered, analyzed, and reviewed by me: Yes - Risk of complications The pt has a mod risk of morbidity or mortality based on: Need for prescription drug management - Departure Departure Disposition: Home Clinical Impression: Urinary retention, Urinary tract infection Condition: Stable Critical Care Time: No Additional Instructions: Drink plenty of fluids. Take your antibiotics as prescribed. Follow-up with your primary care provider tomorrow, 05/14/2023, for further evaluation management. Prescriptions: Cefdinir 300 mg PO BID #14 cap
[2023-05-13 16:28] VITALS: RESP 18; TEMP 97
[2023-05-13 17:05] LABS: ADD URINE CULTURE? ORDERED SEPARATELY (NO); Appearance Turbid (Clear); Bacteria None Seen /HPF (None Seen); Bilirubin Negative (Negative); Blood Negative (Negative); Epithelial Cells None Seen /HPF (None Seen); Glucose, Urine Negative (Negative); Hyaline Casts 20-50 /LPF (0-2); Ketones Negative (Negative); Leukocyte Esterase Moderate (Negative); Nitrite Negative (Negative); Ph 5.5 (4.6-8.0); Protein,Urine Dip 30 (Negative); RBC 0-2 /HPF (0-5); Specific Gravity 1.025 (1.005-1.030); Urobilinogen 0.2 mg/dL (0.2); WBC 51-100 /HPF (0-5)
[2023-05-13] MEDS ORDERED: Levofloxacin 500 MG Tablet PO ONE (17:34)
[2023-05-13] MEDS ORDERED: Levofloxacin 500 MG Tablet ONE (17:37)
[2023-05-13 18:04] VITALS: BP 155/78; PULSE 72; O2SAT 95
== END 2023-05-13 18:13 | disposition home or self-care (01) ==
LOC: ED 15:53
DX: N39.0 Urinary tract infection, site not specified (principal); R33.9 Retention of urine, unspecified; R10.2 Pelvic and perineal pain; I10 Essential (primary) hypertension; E78.5 Hyperlipidemia, unspecified; E11.9 Type 2 diabetes mellitus without complications; Z79.899 Other long term (current) drug therapy; Z72.0 Tobacco use
CPT/HCPCS: 51702; 81001; 87086; 99283; A9270-GY

== ENCOUNTER 2024-04-15 10:33 | Emergency (ER) | payer MEDICARE, OTHER ==
--- NOTE | 2024-04-15 10:37 | ERPHSYRPT ---
- History of Present Illness Time Seen by Provider: 04/15/24 10:37 Source: patient, family Exam Limitations: no limitations Physician History: This is an 89-year-old white male patient who came to the emergency department by private vehicle and is a patient of Dr. Hoffman and presents with foul odor to his urine for 6 to 7 days. He denies chest pain. He denies shortness of breath. He denies abdominal pain. Patient has a history of hypertension, prostate issues, hyperlipidemia, hypothyroidism, dementia, gastroesophageal reflux disease, diabetes and coronary artery disease. Patient is a daily smoker of tobacco cigarettes. Timing/Duration: day(s) (6 to 7 days) Activites at Onset: none Quality: other Onset Location: other (No pain) Pain Radiation: none Severity of Pain-Max: none Severity of Pain-Current: none Modifying Factors: Improves With: nothing Associated Symptoms: denies symptoms Prior abdominal problems: none Allergies/Adverse Reactions: No Known Drug Allergies Allergy (Verified 05/13/23 16:18) Home Medications: Allopurinol 300 mg [Zyloprim 300 mg] 300 mg PO UD 04/17/14 [History] Isosorbide Mononitrate 30 mg [Imdur 30 MG] 30 mg PO DAILY 04/17/14 [History] Metoprolol Tartrate 25 mg [Lopressor 25MG Tab] 25 mg PO DAILY 04/17/14 [History] Nitroglycerin 0.4 mg Tablet [Nitrostat 0.4 MG Tablet] 0.4 mg SL UD 4 [History] Pravastatin Sodium [Pravachol] 40 mg PO HS 04/17/14 [History] Levothyroxine Sodium 25 Mcg [Synthroid 25 Mcg] 100 mcg PO DAILY 06/07/14 [History] Tamsulosin HCl 0.4 mg [Flomax 0.4 MG] 0.4 mg PO DAILY 06/07/14 [History] Lisinopril/Hydrochlorothiazide [Lisinopril-Hctz 20-12.5 mg Tab] 1 ea BID 01/28/21 [History] Aspirin 81 gm Chew [Baby Aspirin 81 mg Chew] 81 mg PO DAILY 05/13/23 [History] Hx Tetanus, Diphtheria Vaccination/Date Given: No Hx Influenza Vaccination/Date Given: Yes Hx Pneumococcal Vaccination/Date Given: No Travel Risk - International Travel Have you traveled outside of the country in past 3 weeks: No - Emerging Infectious Disease Are you exhibiting symptoms associated with any current EIDs: No - Past Medical History Pertinent Past Medical History: Yes Neurological History: Dementia ENT History: Cataracts Cardiac History: High Cholesterol, Hypertension Respiratory History: No Pertinent History Endocrine Medical History: Diabetes Type II, Hypothyroidism Musculoskeletal History: Arthritis GI Medical History: Diverticulosis, GERD, Stomach Cancer, Other History: Other Psycho-Social History: No Pertinent History Male Reproductive Disorders: Prostate Problems Other Medical History: lymphoma, 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, patient states "there is something wrong with my bladder, he has been working on it for 6 months", can not report what specifically his condition is - Past Surgical History Past Surgical History: Yes Neuro Surgical History: No Pertinent History Cardiac: Cardiac Catheterization, Cardiac Stent Respiratory: No Pertinent History Gastrointestinal: Other Genitourinary: No Pertinent History Musculoskeletal: No Pertinent History Male Surgical History: No Pertinent History Other Surgical History: cvl port placed.small bowel resection Significant Family History: no pertinent family hx - Social History Smoking Status: Current some day smoker Exposure to second hand smoke: Yes Drug Use: none Patient Lives Alone: No - Review of Systems Constitutional: No Symptoms Eyes: No Symptoms Ears, Nose, & Throat: No Symptoms Respiratory: No Symptoms Cardiac: No Symptoms Abdominal/Gastrointestinal: No Symptoms Genitourinary Symptoms: Other (Foul-smelling urine) Musculoskeletal: No Symptoms Skin: No Symptoms Neurological: No Symptoms Psychological: No Symptoms Endocrine: No Symptoms Hematologic/Lymphatic: No Symptoms Immunological/Allergic: No Symptoms All Other Systems: Reviewed and Negative - Nursing Vital Signs Nursing Vital Signs: Initial Vital Signs Temperature 97.8 F 04/15/24 10:42 Pulse Rate 73 04/15/24 10:42 Respiratory Rate 20 04/15/24 10:42 Blood Pressure 152/64 04/15/24 10:42 O2 Sat by Pulse Oximetry 98 04/15/24 10:42 Pain Scale Pain Intensity 0 - Physical Exam General Appearance: no apparent distress, alert Eye Exam: PERRL/EOMI, eyes nml inspection Ears, Nose, Throat Exam: normal ENT inspection, moist mucous membranes Neck Exam: normal inspection, non-tender, supple, full range of motion Respiratory Exam: normal breath sounds, lungs clear, airway intact, No chest tenderness, No respiratory distress Cardiovascular Exam: regular rate/rhythm, normal heart sounds, normal peripheral pulses Gastrointestinal/Abdomen Exam: soft, normal bowel sounds, No tenderness Rectal Exam: not done Back Exam: normal inspection, normal range of motion, No CVA tenderness, No vertebral tenderness Extremity Exam: normal inspection, normal range of motion, pelvis stable Neurologic Exam: alert, oriented x 3, cooperative, 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, sensation nml Skin Exam: normal color, warm, dry Lymphatic Exam: No adenopathy SpO2 Interpretation: normal O2 Delivery: Room Air - Course Nursing assessment & vital signs reviewed: Yes Ordered Tests: Active Orders 24 hr Category Date Time Status CULTURE,URINE Stat Lab 04/15/24 11:14 Received UA W/RFX UR CULTURE Stat Lab 04/15/24 11:14 Completed Lab/Rad Data: Laboratory Results 04/15/24 Range/Units 11:14 Urine Color Yellow (Yellow) Urine Appearance Clear (Clear) Urine pH 5.0 (4.6-8.0) Ur Specific [place] 1.015 (1.005-1.030) Urine Protein 30 (Negative) Urine Glucose (UA) Negative (Negative) mg/dL Urine Ketones Negative (Negative) Urine Blood Negative (Negative) Urine Nitrite Negative (Negative) Urine Bilirubin Negative (Negative) Urine Urobilinogen 0.2 (0.2) mg/dL Ur Leukocyte Esterase Moderate A (Negative) U Hyaline Cast (Auto) NONE SEEN (0-2) /LPF Urine Microscopic RBC 0-2 (0-5) /HPF Urine Microscopic WBC 11-20 A (0-5) /HPF Ur Epithelial Cells None Seen (None Seen) /HPF Urine Bacteria None Seen (None Seen) /HPF Urine Culture Reflexed YES (NO) - Progress Progress: unchanged Progress Note: 04/15/24 11:19 My medical decision making and the assignment of low complexity to this patient' s medical issue today is based on review of the patient's past medical history, review of the patient's medication list, review of patient drug allergy list, history present illness and physical findings on examination. The workup in this patient includes urinalysis. If the patient has a urinary tract infection we will treat him for this. If this urine is negative, we will reassess the patient and will discuss with the patient and family members determine if there is any other issues that they are concerned about. The patient is asymptomatic other than the foul odor of his urine. 04/15/24 12:15 I interpreted the patient's laboratory data results. The patient has a significant urinary tract infection. Counseled pt/family regarding: lab results, diagnosis, need for follow-up Medical Desision Making - Diagnostic Testing Diagnostic test were ordered, analyzed, and reviewed by me: Yes - Risk of complications The pt has a mod risk of morbidity or mortality based on: Need for prescription drug management - Departure Departure Disposition: Home Clinical Impression: UTI (urinary tract infection) Condition: Stable Critical Care Time: No Referrals: ALDO HOFFMAN DO [Primary Care Provider] - Follow up/PCP as directed Additional Instructions: Take all your medications as prescribed. Drink plenty of fluids. Call your primary care provider on 04/17/2024 to make arrangements for follow-up appointment and to be seen in the next 5 to 7 days. Prescriptions: Cefdinir 300 mg PO BID #14 cap
[2024-04-15 11:31] LABS: Appearance Clear (Clear); Bacteria None Seen /HPF (None Seen); Bilirubin Negative (Negative); Blood Negative (Negative); Epithelial Cells None Seen /HPF (None Seen); Glucose, Urine Negative (Negative); Hyaline Casts NONE SEEN /LPF (0-2); Ketones Negative (Negative); Leukocyte Esterase Moderate (Negative); Nitrite Negative (Negative); Protein,Urine Dip 30 (Negative); RBC 0-2 /HPF (0-5); Specific Gravity 1.015 (1.005-1.030); Urobilinogen 0.2 mg/dL (0.2)
[2024-04-15 11:35] LABS: ADD URINE CULTURE? YES (NO)
[2024-04-15 11:42] VITALS: PULSE 68; RESP 20; TEMP 97.8; O2SAT 98
[2024-04-15] MEDS ORDERED: Rocephin 1000 MG INJ ONE (12:31)
[2024-04-15] MEDS ORDERED: XYLOCAINE 1% HCL 20 ML MDV ONE (12:31)
[2024-04-15] MEDS: Rocephin 1000 MG INJ IM ONE (12:34)
[2024-04-15 12:47] VITALS: BP 143/59
== END 2024-04-15 13:01 | disposition home or self-care (01) ==
LOC: ED 10:33
DX: N39.0 Urinary tract infection, site not specified (principal); R82.90 Unspecified abnormal findings in urine; I10 Essential (primary) hypertension; E78.5 Hyperlipidemia, unspecified; E11.9 Type 2 diabetes mellitus without complications; Z79.899 Other long term (current) drug therapy; Z72.0 Tobacco use
CPT/HCPCS: 81001; 87086; 96372; 99283; J0696

== ENCOUNTER 2024-04-22 14:07 | Emergency (ER) | payer MEDICARE, OTHER ==
[2024-04-22 14:28] LABS: Appearance Clear (Clear); Bacteria None Seen /HPF (None Seen); Bilirubin Negative (Negative); Blood Negative (Negative); Epithelial Cells None Seen /HPF (None Seen); Glucose, Urine Negative (Negative); Hyaline Casts NONE SEEN /LPF (0-2); Ketones Negative (Negative); Leukocyte Esterase Moderate (Negative); Nitrite Negative (Negative); Ph 5.5 (4.6-8.0); Protein,Urine Dip 30 (Negative); RBC 0-2 /HPF (0-5); Urobilinogen 0.2 mg/dL (0.2); WBC 21-50 /HPF (0-5)
[2024-04-22 14:29] VITALS: BP 163/82; TEMP 97.3; O2SAT 97
[2024-04-22 14:29] LABS: ADD URINE CULTURE? YES (NO)
[2024-04-22] MEDS ORDERED: Augmentin 875-125 Tablet ONE (15:17)
[2024-04-22] MEDS: Augmentin 875-125 Tablet PO ONE (15:17)
--- NOTE | 2024-04-22 15:21 | ERPHSYRPT ---
- History of Present Illness Time Seen by Provider: 04/22/24 14:45 Source: patient Exam Limitations: no limitations Patient Subjective Stated Complaint: UTI- complaints Triage Nursing Assessment: Patient ambulated back to ED with slow and steady ga it using rollator walker. Patient A+O X3 with intermittent confusion. Patient did state to RN he does have dementia. Patient handed this RN a pill bottle and stated he needed a refill on them for his UTI. This RN looked up last visit. Patient was seen in ER on 04/15/24 and dx with UTI and prescribed Cefdinir. Patient finished dose this am. Patient states he is still having burning when he urinates and his urine is foul smelling. Patient denies pain or discomfort. Physician History: 89yo m presents via private vehicle for dysuria and frequency. Pt reports he was seen in ED on 04/15 for the same sx and was given course of cefdinir. Pt reports he completed the abx but is still having sx. Pt denies any fevers, pt is AxO x 3, denies any abdominal pain or loss of bladder continence. Timing/Duration: week(s) (1), intermittent Activites at Onset: none Quality: burning Pain Radiation: none Severity of Pain-Max: none Severity of Pain-Current: none Modifying Factors: Improves With: nothing Associated Symptoms: dysuria, urinary frequency, No fever, No chills, No diaphoresis, No nausea, No vomiting, No nocturia, No polyuria, No loss of bladder control, No lower back pain Prior abdominal problems: similar symptoms Sexual intercourse history: not active Allergies/Adverse Reactions: No Known Drug Allergies Allergy (Verified 04/22/24 14:17) Home Medications: Allopurinol 300 mg [Zyloprim 300 mg] 300 mg PO UD 04/17/14 [History] Isosorbide Mononitrate 30 mg [Imdur 30 MG] 30 mg PO DAILY 04/17/14 [History] Metoprolol Tartrate 25 mg [Lopressor 25MG Tab] 25 mg PO DAILY 04/17/14 [History] Nitroglycerin 0.4 mg Tablet [Nitrostat 0.4 MG Tablet] 0.4 mg SL UD 04/17/14 [History] Pravastatin Sodium [Pravachol] 40 mg PO HS 04/17/14 [History] Levothyroxine Sodium 25 Mcg [Synthroid 25 Mcg] 100 mcg PO DAILY 06/07/14 [History] Tamsulosin HCl 0.4 mg [Flomax 0.4 MG] 0.4 mg PO DAILY 06/07/14 [History] Lisinopril/Hydrochlorothiazide [Lisinopril-Hctz 20-12.5 mg Tab] 1 ea BID 01/28/21 [History] Aspirin 81 gm Chew [Baby Aspirin 81 mg Chew] 81 mg PO DAILY 05/13/23 [History] Hx Tetanus, Diphtheria Vaccination/Date Given: No Hx Influenza Vaccination/Date Given: Yes Hx Pneumococcal Vaccination/Date Given: No Immunizations Up to Date: Yes Travel Risk - International Travel Have you traveled outside of the country in past 3 weeks: No - Emerging Infectious Disease Are you exhibiting symptoms associated with any current EIDs: No - Past Medical History Pertinent Past Medical History: Yes Neurological History: Dementia ENT History: Cataracts Cardiac History: High Cholesterol, Hypertension Respiratory History: No Pertinent History Endocrine Medical History: Diabetes Type II, Hypothyroidism Musculoskeletal History: Arthritis GI Medical History: Diverticulosis, GERD, Stomach Cancer, Other History: Other Psycho-Social History: No Pertinent History Male Reproductive Disorders: Prostate Problems Other Medical History: lymphoma, 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, patient states "there is something wrong with my bladder, he has been working on it for 6 months", can not report what specifically his condition is - Past Surgical History Past Surgical History: Yes Neuro Surgical History: No Pertinent History Cardiac: Cardiac Catheterization, Cardiac Stent Respiratory: No Pertinent History Gastrointestinal: Other Genitourinary: No Pertinent History Musculoskeletal: No Pertinent History Male Surgical History: No Pertinent History Other Surgical History: cvl port placed.small bowel resection Significant Family History: no pertinent family hx - Social History Smoking Status: Former smoker Exposure to second hand smoke: No Drug Use: none Patient Lives Alone: No - Social Determinants of Health Will the patient participate in the screening: Yes Do you worry about a steady place to live?: No Do you have any problems with any of the following?: No known problems In the past 12 months,have you had to go without utilities?: No Transportation Issues: No Has anyone in your support network made you feel unsafe?: No Have you or anyone in your house had to go without enough: No - Review of Systems Constitutional: No Symptoms Respiratory: No Symptoms Cardiac: No Symptoms, Orthopnea Genitourinary Symptoms: Dysuria, Frequency, Urgency - Nursing Vital Signs Nursing Vital Signs: Initial Vital Signs Temperature 97.3 F 04/22/24 14:21 Pulse Rate 76 04/22/24 14:21 Respiratory Rate 20 04/22/24 14:21 Blood Pressure 163/82 04/22/24 14:21 O2 Sat by Pulse Oximetry 97 04/22/24 14:21 Pain Scale Pain Intensity 0 - Physical Exam General Appearance: no apparent distress, alert Respiratory Exam: normal breath sounds, lungs clear, No chest tenderness, No respiratory distress Cardiovascular Exam: regular rate/rhythm, normal heart sounds Gastrointestinal/Abdomen Exam: soft, normal bowel sounds, No tenderness, No distention Back Exam: normal inspection, No CVA tenderness Neurologic Exam: alert, oriented x 3, cooperative Skin Exam: normal color SpO2 Interpretation: normal SpO2: 97 O2 Delivery: Room Air Ordered Tests: Active Orders 24 hr Category Date Time Status CULTURE,URINE Stat Lab 04/22/24 14:17 Received UA W/RFX UR CULTURE Stat Lab 04/22/24 14:17 Completed Lab/Rad Data: Laboratory Results 04/22/24 Range/Units 14:17 Urine Color Yellow (Yellow) Urine Appearance Clear (Clear) Urine pH 5.5 (4.6-8.0) Ur Specific [place] 1.020 (1.005-1.030) Urine Protein 30 (Negative) Urine Glucose (UA) Negative (Negative) mg/dL Urine Ketones Negative (Negative) Urine Blood Negative (Negative) Urine Nitrite Negative (Negative) Urine Bilirubin Negative (Negative) Urine Urobilinogen 0.2 (0.2) mg/dL Ur Leukocyte Esterase Moderate A (Negative) U Hyaline Cast (Auto) NONE SEEN (0-2) /LPF Urine Microscopic RBC 0-2 (0-5) /HPF Urine Microscopic WBC 21-50 A (0-5) /HPF Ur Epithelial Cells None Seen (None Seen) /HPF Urine Bacteria None Seen (None Seen) /HPF Urine Culture Reflexed YES (NO) - Progress Progress: unchanged Progress Note: 04/22/24 15:21 pt vitally stable throughout stay AxO x 3 UA suggestive of UTI will start augmentin in setting of recent trial of cefdinir, bactrim was considered but severe interaction was noted to ACEi 2/2 possibility of hyperkalemia 7 day course of augmentin, first dose received in ED complete entire course follow up w/ PCP Dr Hoffman this week to discuss persistent symptoms return to ED if: develop fevers, develop confusion, develop blood in urine, develop low back or abdominal pain, develop nausea/vomiting Counseled pt/family regarding: lab results, diagnosis, need for follow-up Medical Desision Making - Diagnostic Testing Diagnostic test were ordered, analyzed, and reviewed by me: No - Risk of complications Minimal Risk: Minimal risk of morbidity - Departure Departure Disposition: Home Clinical Impression: UTI (urinary tract infection) Qualifiers: Urinary tract infection type: acute cystitis Hematuria presence: without hematuria Qualified Code(s): N30.00 - Acute cystitis without hematuria Condition: Stable Critical Care Time: No Referrals: ALDO HOFFMAN DO [Primary Care Provider] - Follow up/PCP as directed Additional Instructions: 7 day course of augmentin, first dose received in ED complete entire course follow up w/ PCP Dr Hoffman this week to discuss persistent symptoms recommend probiotic rich foods like yogurts/cottage cheese because this is second round of antibiotics recently, may develop some diarrhea return to ED if: develop fevers, develop confusion, develop blood in urine, develop low back or abdominal pain, develop nausea/vomiting Prescriptions: Amox Tr/Potass Clav. 875 mg [Augmentin 875-125 Tablet] 875 mg PO BID 7 Days #13 tablet
[2024-04-22 15:29] VITALS: PULSE 72; RESP 16
== END 2024-04-22 15:33 | disposition home or self-care (01) ==
LOC: ED 14:07
DX: N30.00 Acute cystitis without hematuria (principal); R30.0 Dysuria; R53.0 Neoplastic (malignant) related fatigue; E78.5 Hyperlipidemia, unspecified; I10 Essential (primary) hypertension; E11.9 Type 2 diabetes mellitus without complications; Z79.899 Other long term (current) drug therapy
CPT/HCPCS: 81001; 87077; 87086; 87186; 99282; A9270-GY

== ENCOUNTER 2024-06-21 06:23 | Observation (INO) | payer MEDICARE ==
[2024-06-21] MEDS ORDERED: VANCOCIN INJECTION IV ONE (06:42)
[2024-06-21] MEDS: TRANEXAMIC 1,000 MG/100ML-NACL 1,000 MG/100 ML PIGGYBACK IV ONE (07:17)
[2024-06-21] MEDS: Lactated Ringers 1,000 ML IV SCH (07:18)
[2024-06-21] MEDS: Decadron 4 MG PO ONE (07:18)
[2024-06-21] MEDS: celeBREX 100 MG PO ONE (07:18)
[2024-06-21] MEDS: CEFAZOLIN 2 GM/100 ML NaCl 2 GM/100 ML IVPB IV SCH ×2 (07:18→14:11)
[2024-06-21] MEDS: TYLENOL EXTRA STRENGTH 500 MG PO ONE (07:18)
[2024-06-21] MEDS ORDERED: EXPAREL 133 MG/10 ML VIAL IJ ONE (07:42)
[2024-06-21] MEDS ORDERED: Marcaine Mpf 0.5% Vial 30 Ml ONE (07:43)
[2024-06-21] MEDS ORDERED: DIPRIVAN 200 MG/20 ML IV ONE (07:43)
[2024-06-21 07:45] LABS: BASOPHIL % 0.8 % (0.2-1.2); Basophil (Absolute #) 0.07 x10^3/uL (0.01-0.08); Eosinophil % 3.5 % (0.8-7.0); Eosinophil (Absolute #) 0.31 x10^3/uL (0.04-0.54); Hematocrit 43.5 % (40.1-51.0); Hemoglobin 14.5 g/dL (13.7-17.5); IMMATURE GRAN # 0.06 x10^3u/L (0.001-0.031); IMMATURE GRAN % 0.7 % (0.001-0.429); Lymphocyte (Absolute #) 1.95 x10^3/uL (1.32-3.57); Mean Cell Volume 90.8 fL (79.0-92.2); Mean Corpuscular Hemoglobin 30.3 pg (25.7-32.2); Mean Corpuscular Hgb Concent. 33.3 g/dL (32.3-36.5); Mean Platelet Volume 9.6 fL (9.4-12.4); Monocyte (Absolute #) 0.49 x10^3/uL (0.30-0.82); Monocytes % 5.5 % (5.3-12.2); Neutrophil % 67.5 % (34.0-67.9); Platelet Count 180 x10^3/uL (163-337); Red Blood Count 4.79 x10^6/uL (4.63-6.08); Red Cell Distribution Width 13.9 % (11.6-14.4); White Blood Count 8.9 x10^3/uL (4.23-9.07)
[2024-06-21] MEDS ORDERED: SUBLIMAZE 100 MCG/2 ML ONE (07:47)
[2024-06-21] MEDS ORDERED: Propofol 1000 mg/100 ml Bottle 100 ML IV ONE (08:21)
[2024-06-21] MEDS ORDERED: TRANEXAMIC 1,000 MG/100ML-NACL 1,000 MG/100 ML PIGGYBACK IV ONE (09:18)
[2024-06-21] MEDS ORDERED: Lactated Ringers 1,000 ML IV ONE (09:21)
--- NOTE | 2024-06-21 11:36 | XRAY ---
Indication: Postop exam. Comparison: April 20, 2024 Portable AP/crosstable lateral right knee demonstrates new total knee arthroplasty with intact prosthesis and knee articulation. Also new postoperative soft tissue swelling and soft tissue emphysema. Stable osteopenia and scattered vascular calcifications.
--- NOTE | 2024-06-21 13:25 | PCM.CONS ---
History of Present Illness - Date of Consult Date of Encounter: 06/21/24 Consulting Provider: TREY GIORDANO NP Requesting Provider: Attending Provider: KASSIE MANJARREZ DO Primary Care Provider: PCP: ALDO HOFFMAN DO Encounter: "The entirety of this encounter was performed in Person " Pt resting in bed Post op day #1 for Right TKR by Dr. Manjarrez. Hospitalist consulted for medical management. Pt has a PMHX of CAD, dementia, hearing impaired, HTN, hyperlipidemia, type II DM, hypothyroidism, OA, diverticulosis, GERD, CKD, and stomach cancer. Pt is pleasant and reports no concerns at this time. Per [facility] staff pt lives at home with whom is WC bound and he is the sole caregiver for her. He does have HHC that comes in the home but may need more at d/c. Pt to eval per Ortho guidelines. Pt denies any further concerns at this time. - Reason for Consult cc:: The requesting physician will be sent a copy of the consult. - Review of Systems Constitutional: No Fever, No Chills Eyes: No Symptoms Ears, Nose, & Throat: No Symptoms Respiratory: No Cough, No Short Of Breath Cardiac: No Chest Pain, No Edema, No Syncope Abdominal/Gastrointestinal: No Abdominal Pain, No Nausea, No Vomiting, No Diarrhea Genitourinary Symptoms: No Dysuria Musculoskeletal: Joint Pain (Right knee), No Back Pain, No Neck Pain Skin: No Rash Neurological: No Dizziness, No Focal Weakness, No Sensory Changes Psychological: No Symptoms Endocrine: No Symptoms Hematologic/Lymphatic: No Symptoms Immunological/Allergic: No Symptoms Medications & Allergies Home Medications: Home Medication List Allopurinol 300 mg [Zyloprim 300 mg] 300 mg PO UD 04/17/14 [History Confirmed 06/21/24] Isosorbide Mononitrate 30 mg [Imdur 30 MG] 30 mg PO DAILY 04/17/14 [History Confirmed 06/21/24] Nitroglycerin 0.4 mg Tablet [Nitrostat 0.4 MG Tablet] 0.4 mg SL UD 04/17/14 [History Confirmed 06/09/24] Pravastatin Sodium [Pravachol] 40 mg PO HS 04/17/14 [History Confirmed 06/21/24] Levothyroxine Sodium 25 Mcg [Synthroid 25 Mcg] 100 mcg PO DAILY 06/07/14 [History Confirmed 06/21/24] Tamsulosin HCl 0.4 mg [Flomax 0.4 MG] 0.4 mg PO DAILY 06/07/14 [History Confirmed 06/21/24] Lisinopril/Hydrochlorothiazide [Lisinopril-Hctz 20-12.5 mg Tab] 1 ea BID 01/28/21 [History Confirmed 06/09/24] Docusate Sodium 100 mg [Docusate Sodium 100 MG] 100 mg PO UD 06/09/24 [History Confirmed 06/21/24] Donepezil HCl 10 mg [Aricept 10 MG] 10 mg PO UD 06/09/24 [History Confirmed 06/21/24] Aspirin 81 mg PO DAILY 06/21/24 [History Confirmed 06/21/24] Hydrocodone/Acetaminophen [Hydrocodone-Acetamin 5-325 mg] 1 - 2 tab PO Q4HPRN PRN #30 tablet MDD 6 06/21/24 [Rx] Allergies/Adverse Reactions: Allergies Allergy/AdvReac Type Severity Reaction Status Date / Time No Known Drug Allergies Allergy Verified 06/09/24 10:04 - Past Medical History Past Medical History: Yes Neurological History: Dementia ENT History: Cataracts Cardiac History: High Cholesterol, Hypertension Respiratory History: No Pertinent History Endocrine Medical History: Diabetes Type II, Hypothyroidism Musculoskelatal History: Arthritis GI Medical History: Diverticulosis, GERD, Stomach Cancer, Other History: Other Pyscho-Social History: No Pertinent History Male Reproductive Disorders: Prostate Problems Comment: lymphoma, 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, patient states "there is something wrong with my bladder, he has been working on it for 6 months", can not report what specifically his condition is, CKD, Colon cancer, hearing loss, TypeII diabetic - Past Surgical History Past Surgical History: Yes Neuro Surgical History: No Pertinent History Cardiac History: Cardiac Catheterization, Cardiac Stent Respiratory Surgery: No Pertinent History GI Surgical History: Other Genitourinary Surgical Hx: Other Musculskeletal Surgical Hx: No Pertinent History, Orthopedic Surgery Male Surgical History: No Pertinent History Other Surgical History: cvl port placed.small bowel resection, CKD, History of colon cancer. TOTAL RIGHT KNEE ARTHROPLASTY 06/21/24 Significant Family History: no pertinent family hx - Social History Smoking Status: Never smoker Exposure to second hand smoke: No Alcohol: None Drug Use: none - Social Determinants of Health Will the patient participate in the screening: Yes Do you worry about a steady place to live?: No In the past 12 months,have you had to go without utilities?: No Have you or anyone in your house had to go without enough: No Transportation Issues: No Has anyone in your support network made you feel unsafe?: No - Physical Exam Vital Signs: Vital Signs - 24 hr Temp Pulse Resp BP Pulse Ox 06/21/24 12:00 97.1 F 66 18 [id number] 98 06/21/24 07:36 97.1 F 17078 98 06/21/24 07:22 97.1 [facility] 98 General Appearance: no apparent distress, alert Neurologic Exam: alert, oriented x 3, cooperative, normal mood/affect, nml cerebellar function, nml station & gait, sensation nml, No motor deficits Eye Exam: PERRL/EOMI, eyes nml inspection Ears, Nose, Throat Exam: normal ENT inspection, TMs normal, pharynx normal, moist mucous membranes Neck Exam: normal inspection, non-tender, supple, full range of motion Respiratory Exam: normal breath sounds, lungs clear, No respiratory distress Cardiovascular Exam: regular rate/rhythm, normal heart sounds, normal peripheral pulses Gastrointestinal/Abdomen Exam: soft, normal bowel sounds, No tenderness, No mass Back Exam: normal inspection, normal range of motion, No CVA tenderness, No vertebral tenderness Extremity Exam: normal inspection, normal range of motion, pelvis stable, limited range of motion (right knee, Post op TKR) Skin Exam: normal color, warm, dry, No rash Lymphatic Exam: No adenopathy Results - Labs Lab/Micro Results: Lab Results-Last 24 Hours 06/21/24 06/21/24 Range/Units 07:21 07:22 WBC 8.9 (4.23-9.07) x10^3/uL RBC 4.79 (4.63-6.08) x10^6/uL Hgb 14.5 (13.7-17.5) g/dL Hct 43.5 (40.1-51.0) % MCV 90.8 (79.0-92.2) fL MCH 30.3 (25.7-32.2) pg MCHC 33.3 (32.3-36.5) g/dL RDW 13.9 (11.6-14.4) % Plt Count 180 (163-337) x10^3/uL MPV 9.6 (9.4-12.4) fL Gran % 67.5 (34.0-67.9) % Immature Gran % (Auto) 0.7 H (0.001-0.429) % Nucleat RBC Rel Count 0.0 (0.00-0.2) % Eos # (Auto) 0.31 (0.04-0.54) x10^3/uL Immature Gran # (Auto) 0.06 H (0.001-0.031) x10^3u/L Absolute Lymphs (auto) 1.95 (1.32-3.57) x10^3/uL Absolute Monos (auto) 0.49 (0.30-0.82) x10^3/uL Absolute Nucleated RBC 0.00 (0.00-0.012) x10^3u/L Lymphocytes % 22.0 (21.8-53.1) % Monocytes % 5.5 (5.3-12.2) % Eosinophils % 3.5 (0.8-7.0) % Basophils % 0.8 (0.2-1.2) % Absolute Granulocytes 6.00 H (1.78-5.38) x10^3/uL Basophils # 0.07 (0.01-0.08) x10^3/uL POC Glucometer 119 H (74 to 106) mg/dL - Radiology Impressions Radiology Exams & Impressions: Radiology Procedures Category Date Time Status KNEE (1 OR 2 VIEW) Stat Exams 06/21/24 10:55 Completed - Other Procedures and Tests Respiratory Therapy 06/21/24 11:48 Incentive Spirometry Q1H Assessment/Plan (1) Status post total right knee replacement Current Visit: Yes Status: Acute Assessment & Plan: - Post OP day # 1 - Ortho to manage- Dr. Manjarrez - PT eval and treat - Cryocuff - elevate extremity Code(s): Z96.651 - PRESENCE OF RIGHT ARTIFICIAL KNEE JOINT (2) Dementia Current Visit: No Status: Chronic Assessment & Plan: - chronic - Continue Aricept Code(s): F03.90 - UNSP DEMENTIA, UNSP SEVERITY, WITHOUT BEH/PSYCH/MOOD/ANX (3) Diabetes mellitus Current Visit: No Status: Chronic Assessment & Plan: - A1C- pending - Hx of but not currently on any meds Code(s): E11.9 - TYPE 2 DIABETES MELLITUS WITHOUT COMPLICATIONS (4) Hard of hearing Current Visit: No Status: Chronic Assessment & Plan: - Has left hearing aide Code(s): H91.90 - UNSPECIFIED HEARING LOSS, UNSPECIFIED EAR (5) Hypothyroidism Current Visit: Yes Status: Chronic Assessment & Plan: - continue synthroid Code(s): E03.9 - HYPOTHYROIDISM, UNSPECIFIED (6) BPH (benign prostatic hyperplasia) Current Visit: Yes Status: Chronic Assessment & Plan: - Continue Flomax VTE: SCD's Next of KIN: Daughter D/C plan: 1-2 days Code status: Full Code(s): N40.0 - BENIGN PROSTATIC HYPERPLASIA WITHOUT LOWER URINRY TRACT SYMP
[2024-06-21] MEDS ORDERED: Nitrostat 0.4 MG Tablet SL PRN (13:30)
[2024-06-21] MEDS ORDERED: TYLENOL 325 MG PO PRN (13:43)
[2024-06-21] MEDS ORDERED: TYLENOL EXTRA STRENGTH 500 MG PO PRN (13:44)
[2024-06-21] MEDS ORDERED: Hydromorphone 1 mg/ml Injection IV PRN (13:45)
[2024-06-21] MEDS ORDERED: Zofran 4 MG/2 ML VIAL IV PRN (13:48)
[2024-06-21] MEDS: Sodium Chloride 0.9% 1000 ML 1,000 ML IV SCH (14:11)
[2024-06-21] MEDS: NORCO 7.5/325 MG TAB PO PRN (14:11)
[2024-06-21] MEDS: Flomax 0.4 MG PO SCH (14:12)
[2024-06-21] MEDS ORDERED: MEDICATION INTERVENTION MC SCH (14:15)
[2024-06-21] MEDS ORDERED: HUMALOG ONE (17:24)
[2024-06-21] MEDS: HUMALOG SQ PRN (17:26)
[2024-06-21] MEDS: Zestril 20 MG PO SCH (21:44)
[2024-06-21] MEDS: ZOCOR 20MG PO SCH (21:44)
[2024-06-21] MEDS: Aricept 10 MG PO SCH (21:44)
[2024-06-21] MEDS: hydroDIURIL 25 MG PO SCH (21:44)
[2024-06-21] MEDS: ULTRAM 50 MG PO PRN (23:34)
[2024-06-22 05:33] LABS: Hemoglobin 12.3 g/dL (13.7-17.5); Mean Cell Volume 91.1 fL (79.0-92.2); Mean Corpuscular Hemoglobin 30.3 pg (25.7-32.2); Mean Corpuscular Hgb Concent. 33.2 g/dL (32.3-36.5); Mean Platelet Volume 9.9 fL (9.4-12.4); Platelet Count 172 x10^3/uL (163-337); Red Blood Count 4.06 x10^6/uL (4.63-6.08); Red Cell Distribution Width 13.9 % (11.6-14.4)
[2024-06-22 06:00] LABS: ALBUMIN 3.4 g/dL (3.5-5.0); BILIRUBIN,TOTAL 0.4 mg/dL (0.2-1.3); Calcium 8.4 mg/dL (8.4-10.2); Creatinine 1 1.43 mg/dL (0.66-1.25); EST GLOMERULAR FILTRATION RATE 46.8 ML/MIN; Potassium 4.4 mmol/L (3.5-5.1); Total Protein 5.5 g/dL (6.3-8.2)
[2024-06-22 10:20] LABS: Appearance Clear (Clear); Bacteria None Seen /HPF (None Seen); Bilirubin Negative (Negative); Blood Negative (Negative); Epithelial Cells None Seen /HPF (None Seen); Glucose, Urine Negative (Negative); Hyaline Casts NONE SEEN /LPF (0-2); Ketones Negative (Negative); Leukocyte Esterase Trace (Negative); Nitrite Negative (Negative); Protein,Urine Dip Negative (Negative); RBC 0-2 /HPF (0-5); Urobilinogen 0.2 mg/dL (0.2); WBC 0-2 /HPF (0-5)
[2024-06-22] MEDS: ZYLOPRIM 300 MG PO SCH (10:23)
[2024-06-22] MEDS: SODIUM BICARBONATE PO SCH (10:23)
[2024-06-22] MEDS: Imdur 30 MG PO SCH (10:23)
[2024-06-22] MEDS: SYNTHROID 100 MCG PO SCH (10:23)
[2024-06-22] MEDS: ECOTRIN 81 MG PO SCH (10:23)
--- NOTE | 2024-06-22 10:55 | OP ---
SURGERY DATE/TIME: 06/21/2024 [id number] PREOPERATIVE DIAGNOSIS: Osteoarthritis, right knee. POSTOPERATIVE DIAGNOSIS: Osteoarthritis, right knee. PROCEDURE: Right total knee replacement arthroplasty utilizing the [employer] Signature series instrumentation; a size 10 femoral component, press-fit; size F tibial component, cemented; a 10 mm tibial polyethylene bearing tray; a 25 mm single-peg inset poly patella, cemented. SURGEON: Ron Manjarrez II, DO ANESTHESIA: General with block for postop pain control. DESCRIPTION OF PROCEDURE AND FINDINGS: The patient was identified and informed consent was obtained. The patient was taken to the operative suite after the block had been administered in the preoperative holding area. General anesthetic was administered. Patient was placed in a supine position on the operating table, appropriately positioned with a sandbag under the right hip. The right lower extremity had a tourniquet placed high on the thigh, was then prepped and draped in the usual sterile fashion. A standard time-out was taken. The leg was exsanguinated and the tourniquet was elevated to 350 mmHg. Following this, a midline incision was carried out from just superior to the superior pole of the patella to the level of the tibial tubercle with the knee in about 35 degrees of flexion being held in the knee arce. The skin was incised. Dissection was carried out through the subcutaneous tissue and at this point then, utilizing a fresh #15 blade, a standard medial parapatellar incision was accomplished. Upon entering the joint, grade 1 synovial fluid was encountered, a large loose body was also encountered. At this point then, portions of the medial and lateral menisci, as well as the infrapatellar fat pad were excised for visualization. Z retractors were then positioned medially and laterally. The patient was noted to have an ACL-deficient knee. At this point then, the femoral condyles and tibial plateaus were inspected. Hard eburnated bone was noted over the entire weightbearing surface of both medial and lateral femoral condyles, as well as the medial tibial plateau. Significant degenerative changes were noted in the lateral tibial plateau. Moderately severe degenerative changes were also noted on the patella. At this point, the Signature series guide was placed on the femur and held with the appropriate pins. The distal femoral cutting block was then utilized and the distal femoral cut was then made. At this point then, the 4-in-1 cutting block was applied. Anterior, posterior and chamfer cuts were then accomplished. Wafers of bone were removed. Our attention now was turned to the tibial side where any remaining portions of menisci were excised. A posterior retractor was positioned in addition to the medial and lateral retractors. The tibial Signature series guide was placed and held with its pins, followed by application of the proximal tibial guide. The tibia was then resected and the wafer of bone was removed. At this point then, the joint was cleaned of any further debris. Attention was now turned to the tibial trial where it was deemed that the size F component was the appropriate size. It was held in the appropriate rotation with pins and the cruciate stem was then cut. Trial femoral component was then applied and the drill holes for the permanent pegs were then created. A trial reduction utilizing a 10 mm polyethylene bearing tray showed excellent soft tissue balance in all planes of motion. At this point, osteophytes were removed from the patella and the patellar button was milled. A 25 mm inset patella was utilized, restoring the preresection height. At this point, excellent tracking was noted. At this time, all trial instrumentation was then removed. The joint was copiously irrigated with the pulse sheeting puller while the cement was being vacuum mixed. Cement was then injected into the interstices of the proximal tibia with the cement gun. Tibial component was then impacted into position and excess cement was removed. The femoral component was then impacted into position and the trial tibial tray was then inserted and the knee was held in extension during the curing process. Any remaining cement was then removed from the edges of the tibia. The patellar button was then cemented into position after irrigating the patella and drying it. It was held with its appropriate clamp. At this point then, all excess cement was removed. Once the cement had fully cured, again trial reduction showed the size 10 component to be the appropriate size. The trial was removed. The joint was irrigated and the permanent component inserted and fully seated. At this point then, the wound was irrigated and closed with #2 Stratafix, 2-0 Monocryl, and 3-0 Stratafix subcutaneous augmented with Dermabond. An Aquacel dressing was applied. The patient was transferred to the cart and taken to recovery room in satisfactory condition, having tolerated the procedure well.
--- NOTE | 2024-06-22 12:57 | PCM.CONS ---
History of Present Illness - Reason for Consult Chief Complaint: POST OP RIGHT TOTAL KNEE ARTHROPLASTY Date of Consultation Date: 06/22/24 Requesting Provider: KASSIE MANJARREZ DO Consulting Provider: TREY GIORDANO NP History of Present Illness: 06/21/24 Pt resting in bed Post op day #1 for Right TKR by Dr. Manjarrez. Hospitalist consulted for medical management. Pt has a PMHX of CAD, dementia, hearing impaired, HTN, hyperlipidemia, type II DM, hypothyroidism, OA, diverticulosis, GERD, CKD, and stomach cancer. Pt is pleasant and reports no concerns at this time. Per [facility] staff pt lives at home with whom is WC bound and he is the sole caregiver for her. He does have HHC that comes in the home but may need more at d/c. Pt to eval per Ortho guidelines. Pt denies any further concerns at this time. 06/22/24 Pt resting in the chair. Ortho has signed off on pt and able to d/c when ok with hospitalist. Meds have been sent in by surgery to pharmacy IV fluids stopped d/t COY. WBC elevated likely from post op surgery. Will continue to monitor overnight and will likely d/c tomorrow. Pt is pleasant and reports no concerns at this time other than right knee pain. - Review of Systems Constitutional: No Fever, No Chills Eyes: No Symptoms Ears, Nose, & Throat: No Symptoms Respiratory: No Cough, No Short Of Breath Cardiac: No Chest Pain, No Edema, No Syncope Abdominal/Gastrointestinal: No Abdominal Pain, No Nausea, No Vomiting, No Diarrhea Genitourinary Symptoms: No Dysuria Musculoskeletal: Joint Pain (Right knee), No Back Pain, No Neck Pain Skin: No Rash Neurological: No Dizziness, No Focal Weakness, No Sensory Changes Psychological: No Symptoms Endocrine: No Symptoms Hematologic/Lymphatic: No Symptoms Immunological/Allergic: No Symptoms Medications & Allergies Home Medications: Home Medication List Allopurinol 300 mg [Zyloprim 300 mg] 300 mg PO UD 04/17/14 [History Confirmed 06/21/24] Isosorbide Mononitrate 30 mg [Imdur 30 MG] 30 mg PO DAILY 04/17/14 [History Confirmed 06/21/24] Nitroglycerin 0.4 mg Tablet [Nitrostat 0.4 MG Tablet] 0.4 mg SL UD 04/17/14 [History Confirmed 06/09/24] Pravastatin Sodium [Pravachol] 40 mg PO HS 04/17/14 [History Confirmed 06/21/24] Levothyroxine Sodium 25 Mcg [Synthroid 25 Mcg] 100 mcg PO DAILY 06/07/14 [History Confirmed 06/21/24] Tamsulosin HCl 0.4 mg [Flomax 0.4 MG] 0.4 mg PO DAILY 06/07/14 [History Confirmed 06/21/24] Lisinopril/Hydrochlorothiazide [Lisinopril-Hctz 20-12.5 mg Tab] 1 ea BID 01/28/21 [History Confirmed 06/09/24] Docusate Sodium 100 mg [Docusate Sodium 100 MG] 100 mg PO DAILY PRN 06/09/24 [History Confirmed 06/21/24] Donepezil HCl 10 mg [Aricept 10 MG] 10 mg PO BID 06/09/24 [History Confirmed 06/21/24] Aspirin 81 mg PO DAILY 06/21/24 [History Confirmed 06/21/24] Hydrocodone/Acetaminophen [Hydrocodone-Acetamin 5-325 mg] 1 - 2 tab PO Q4HPRN PRN #30 tablet MDD 6 06/21/24 [Rx] Allergies/Adverse Reactions: Allergies Allergy/AdvReac Type Severity Reaction Status Date / Time No Known Drug Allergies Allergy Verified 06/09/24 10:04 - Past Medical History Past Medical History: Yes Neurological History: Dementia ENT History: Cataracts Cardiac History: High Cholesterol, Hypertension Respiratory History: No Pertinent History Endocrine Medical History: Diabetes Type II, Hypothyroidism Musculoskelatal History: Arthritis GI Medical History: Diverticulosis, GERD, Stomach Cancer, Other History: Other Pyscho-Social History: No Pertinent History Male Reproductive Disorders: Prostate Problems Comment: lymphoma, 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, patient states "there is something wrong with my bladder, he has been working on it for 6 months", can not report what specifically his condition is, CKD, Colon cancer, hearing loss, TypeII diabetic - Past Surgical History Past Surgical History: Yes Neuro Surgical History: No Pertinent History Cardiac History: Cardiac Catheterization, Cardiac Stent Respiratory Surgery: No Pertinent History GI Surgical History: Other Genitourinary Surgical Hx: Other Musculskeletal Surgical Hx: No Pertinent History, Orthopedic Surgery Male Surgical History: No Pertinent History Other Surgical History: cvl port placed.small bowel resection, CKD, History of colon cancer. TOTAL RIGHT KNEE ARTHROPLASTY 06/21/24 Significant Family History: no pertinent family hx - Social History Smoking Status: Never smoker Exposure to second hand smoke: No Alcohol: None Drug Use: none - Social Determinants of Health Will the patient participate in the screening: Yes Do you worry about a steady place to live?: No Do you have any problems with any of the following?: No known problems In the past 12 months,have you had to go without utilities?: No Have you or anyone in your house had to go without enough: No Transportation Issues: No Has anyone in your support network made you feel unsafe?: No Does the patient want assistance with any of the above?: No - Physical Exam Vital Signs: Vital Signs - 24 hr Temp Pulse Resp BP Pulse Ox 06/22/24 07:10 97.7 F 71 16 117/56 94 L 06/22/24 04:00 97.8 F 68 22 123/58 95 06/21/24 23:34 98.1 F 89 22 128/59 94 L 06/21/24 20:00 97.8 F 95 H 24 140/77 97 06/21/24 16:00 97.5 F 83 16 151/73 96 06/21/24 14:00 83 121/59 06/21/24 13:30 83 112/54 06/21/24 13:00 77 100/51 General Appearance: no apparent distress, alert Neurologic Exam: alert, oriented x 3, cooperative, normal mood/affect, nml cerebellar function, nml station & gait, sensation nml, No motor deficits Eye Exam: PERRL/EOMI, eyes nml inspection Ears, Nose, Throat Exam: normal ENT inspection, TMs normal, pharynx normal, moist mucous membranes Neck Exam: normal inspection, non-tender, supple, full range of motion Respiratory Exam: normal breath sounds, lungs clear, No respiratory distress Cardiovascular Exam: regular rate/rhythm, normal heart sounds, normal peripheral pulses Gastrointestinal/Abdomen Exam: soft, normal bowel sounds, No tenderness, No mass Back Exam: normal inspection, normal range of motion, No CVA tenderness, No vertebral tenderness Extremity Exam: normal inspection, normal range of motion, pelvis stable Skin Exam: normal color, warm, dry, No rash Lymphatic Exam: No adenopathy Results - Labs Lab/Micro Results: Lab Results-Last 24 Hours 06/21/24 06/21/24 06/21/24 Range/Units 07:22 16:53 21:24 WBC (4.23-9.07) x10^3/uL RBC (4.63-6.08) x10^6/uL Hgb (13.7-17.5) g/dL Hct (40.1-51.0) % MCV (79.0-92.2) fL MCH (25.7-32.2) pg MCHC (32.3-36.5) g/dL RDW (11.6-14.4) % Plt Count (163-337) x10^3/uL MPV (9.4-12.4) fL Sodium (135-145) mmol/L Potassium (3.5-5.1) mmol/L Chloride (98-107) mmol/L Carbon Dioxide (22-30) mmol/L Anion Gap (5-15) MEQ/L BUN (9-20) mg/dL Creatinine (0.66-1.25) mg/dL Estimated GFR ML/MIN Glucose (74-106) mg/dL POC Glucometer 268 H 161 H (74 to 106) mg/dL Hemoglobin A1c 6.03 H (4.5-6.0) % Calcium (8.4-10.2) mg/dL Total Bilirubin (0.2-1.3) mg/dL AST (17-59) U/L ALT (0-50) U/L Alkaline Phosphatase (38-126) U/L Serum Total Protein (6.3-8.2) g/dL Albumin (3.5-5.0) g/dL Urine Color (Yellow) Urine Appearance (Clear) Urine pH (4.6-8.0) Ur Specific Holt (1.005-1.030) Urine Protein (Negative) Urine Glucose (UA) (Negative) mg/dL Urine Ketones (Negative) Urine Blood (Negative) Urine Nitrite (Negative) Urine Bilirubin (Negative) Urine Urobilinogen (0.2) mg/dL Ur Leukocyte Esterase (Negative) U Hyaline Cast (Auto) (0-2) /LPF Urine Microscopic RBC (0-5) /HPF Urine Microscopic WBC (0-5) /HPF Ur Epithelial Cells (None Seen) /HPF Urine Bacteria (None Seen) /HPF Urine Culture Reflexed (NO) 06/22/24 06/22/24 06/22/24 Range/Units 04:24 04:24 06:54 WBC 16.0 H (4.23-9.07) x10^3/uL RBC 4.06 L (4.63-6.08) x10^6/uL Hgb 12.3 L (13.7-17.5) g/dL Hct 37.0 L (40.1-51.0) % MCV 91.1 (79.0-92.2) fL MCH 30.3 (25.7-32.2) pg MCHC 33.2 (32.3-36.5) g/dL RDW 13.9 (11.6-14.4) % Plt Count 172 (163-337) x10^3/uL MPV 9.9 (9.4-12.4) fL Sodium 138 (135-145) mmol/L Potassium 4.4 (3.5-5.1) mmol/L Chloride 109 H (98-107) mmol/L Carbon Dioxide 18 L (22-30) mmol/L Anion Gap 15.0 (5-15) MEQ/L BUN 33 H (9-20) mg/dL Creatinine 1.43 H (0.66-1.25) mg/dL Estimated GFR 46.8 ML/MIN Glucose 161 H (74-106) mg/dL POC Glucometer 140 H (74 to 106) mg/dL Hemoglobin A1c (4.5-6.0) % Calcium 8.4 (8.4-10.2) mg/dL Total Bilirubin 0.40 (0.2-1.3) mg/dL AST 29 (17-59) U/L ALT 28 (0-50) U/L Alkaline Phosphatase 86 (38-126) U/L Serum Total Protein 5.5 L (6.3-8.2) g/dL Albumin 3.4 L (3.5-5.0) g/dL Urine Color (Yellow) Urine Appearance (Clear) Urine pH (4.6-8.0) Ur Specific Holt (1.005-1.030) Urine Protein (Negative) Urine Glucose (UA) (Negative) mg/dL Urine Ketones (Negative) Urine Blood (Negative) Urine Nitrite (Negative) Urine Bilirubin (Negative) Urine Urobilinogen (0.2) mg/dL Ur Leukocyte Esterase (Negative) U Hyaline Cast (Auto) (0-2) /LPF Urine Microscopic RBC (0-5) /HPF Urine Microscopic WBC (0-5) /HPF Ur Epithelial Cells (None Seen) /HPF Urine Bacteria (None Seen) /HPF Urine Culture Reflexed (NO) 06/22/24 06/22/24 Range/Units 10:12 11:45 WBC (4.23-9.07) x10^3/uL RBC (4.63-6.08) x10^6/uL Hgb (13.7-17.5) g/dL Hct (40.1-51.0) % MCV (79.0-92.2) fL MCH (25.7-32.2) pg MCHC (32.3-36.5) g/dL RDW (11.6-14.4) % Plt Count (163-337) x10^3/uL MPV (9.4-12.4) fL Sodium (135-145) mmol/L Potassium (3.5-5.1) mmol/L Chloride (98-107) mmol/L Carbon Dioxide (22-30) mmol/L Anion Gap (5-15) MEQ/L BUN (9-20) mg/dL Creatinine (0.66-1.25) mg/dL Estimated GFR ML/MIN Glucose (74-106) mg/dL POC Glucometer 157 H (74 to 106) mg/dL Hemoglobin A1c (4.5-6.0) % Calcium (8.4-10.2) mg/dL Total Bilirubin (0.2-1.3) mg/dL AST (17-59) U/L ALT (0-50) U/L Alkaline Phosphatase (38-126) U/L Serum Total Protein (6.3-8.2) g/dL Albumin (3.5-5.0) g/dL Urine Color Yellow (Yellow) Urine Appearance Clear (Clear) Urine pH 5.0 (4.6-8.0) Ur Specific Holt 1.020 (1.005-1.030) Urine Protein Negative (Negative) Urine Glucose (UA) Negative (Negative) mg/dL Urine Ketones Negative (Negative) Urine Blood Negative (Negative) Urine Nitrite Negative (Negative) Urine Bilirubin Negative (Negative) Urine Urobilinogen 0.2 (0.2) mg/dL Ur Leukocyte Esterase Trace A (Negative) U Hyaline Cast (Auto) NONE SEEN (0-2) /LPF Urine Microscopic RBC 0-2 (0-5) /HPF Urine Microscopic WBC 0-2 (0-5) /HPF Ur Epithelial Cells None Seen (None Seen) /HPF Urine Bacteria None Seen (None Seen) /HPF Urine Culture Reflexed NO (NO) Accuchecks Date 06/22/24 Date 06/22/24 Date 06/21/24 Time 11:52 - Radiology Impressions Radiology Exams & Impressions: Radiology Procedures Category Date Time Status KNEE (1 OR 2 VIEW) Stat Exams 06/21/24 10:55 Completed Assessment/Plan (1) Status post total right knee replacement Current Visit: Yes Status: Acute Code(s): Z96.651 - PRESENCE OF RIGHT ARTIFICIAL KNEE JOINT (2) Dementia Current Visit: No Status: Chronic Code(s): F03.90 - UNSP DEMENTIA, UNSP SEVERITY, WITHOUT BEH/PSYCH/MOOD/ANX (3) Diabetes mellitus Current Visit: No Status: Chronic Code(s): E11.9 - TYPE 2 DIABETES MELLITUS WITHOUT COMPLICATIONS (4) Hard of hearing Current Visit: No Status: Chronic Code(s): H91.90 - UNSPECIFIED HEARING LOSS, UNSPECIFIED EAR (5) Hypothyroidism Current Visit: Yes Status: Chronic Code(s): E03.9 - HYPOTHYROIDISM, UNSPECIFIED (6) BPH (benign prostatic hyperplasia) Current Visit: Yes Status: Chronic Assessment & Plan: (1) Status post total right knee replacement Current Visit: Yes Status: Acute Assessment & Plan: - Post OP day # 1 - Ortho to manage- Dr. Manjarrez - PT eval and treat - Cryocuff - elevate extremity 06/22 - WBC 16.0 likely from post op surgery Code(s): Z96.651 - PRESENCE OF RIGHT ARTIFICIAL KNEE JOINT (2) Dementia Current Visit: No Status: Chronic Assessment & Plan: - chronic - Continue Aricept Code(s): F03.90 - UNSP DEMENTIA, UNSP SEVERITY, WITHOUT BEH/PSYCH/MOOD/ANX (3) Diabetes mellitus Current Visit: No Status: Chronic Assessment & Plan: - A1C- 6.03- controlled - Hx of but not currently on any meds Code(s): E11.9 - TYPE 2 DIABETES MELLITUS WITHOUT COMPLICATIONS (4) Hard of hearing Current Visit: No Status: Chronic Assessment & Plan: - Has left hearing aide Code(s): H91.90 - UNSPECIFIED HEARING LOSS, UNSPECIFIED EAR (5) Hypothyroidism Current Visit: Yes Status: Chronic Assessment & Plan: - continue synthroid Code(s): E03.9 - HYPOTHYROIDISM, UNSPECIFIED (6) BPH (benign prostatic hyperplasia) Current Visit: Yes Status: Chronic Assessment & Plan: - Continue Flomax Code(s): N40.0 - BENIGN PROSTATIC HYPERPLASIA WITHOUT LOWER URINRY TRACT SYMP Code(s): N40.0 - BENIGN PROSTATIC HYPERPLASIA WITHOUT LOWER URINRY TRACT SYMP (7) COY (acute kidney injury) Current Visit: Yes Status: Acute Assessment & Plan: - Creat 1.43, baseline 1.25 - NS @100 stopped - pt eating and drinking well Code(s): N17.9 - ACUTE KIDNEY FAILURE, UNSPECIFIED (8) Metabolic acidosis Current Visit: Yes Status: Acute Assessment & Plan: - Co2 18- started oral bicarb BID VTE: SCD's Next of KIN: Daughter D/C plan: tomorrow Code status: Full Code(s): E87.20 - ACIDOSIS, UNSPECIFIED
[2024-06-22] MEDS: Docusate Sodium 100 MG PO PRN (15:40)
[2024-06-23 05:37] LABS: Hematocrit 33.3 % (40.1-51.0); Hemoglobin 10.8 g/dL (13.7-17.5); Mean Cell Volume 92.2 fL (79.0-92.2); Mean Corpuscular Hemoglobin 29.9 pg (25.7-32.2); Mean Corpuscular Hgb Concent. 32.4 g/dL (32.3-36.5); Mean Platelet Volume 9.7 fL (9.4-12.4); Platelet Count 138 x10^3/uL (163-337); Red Blood Count 3.61 x10^6/uL (4.63-6.08); Red Cell Distribution Width 14.3 % (11.6-14.4); White Blood Count 11.9 x10^3/uL (4.23-9.07)
[2024-06-23 06:05] LABS: ALBUMIN 3.3 g/dL (3.5-5.0); ANION GAP 14.1 MEQ/L (5-15); BILIRUBIN,TOTAL 0.9 mg/dL (0.2-1.3); Calcium 8.2 mg/dL (8.4-10.2); Creatinine 1 1.33 mg/dL (0.66-1.25); EST GLOMERULAR FILTRATION RATE 51.1 ML/MIN; Total Protein 5.4 g/dL (6.3-8.2)
[2024-06-23 11:56] VITALS: BP 146/64; PULSE 80; RESP 18; TEMP 98.7; O2SAT 94
--- NOTE | 2024-06-23 12:46 | PCM.DS ---
Discharge Summary Date of Admission: 06/21/24 08:00 Date of Discharge: -06/23/24 Admitting Physician: SHEILA ADAM MD Consults: Consults on Case 06/21/24 11:48 Consult Physician ROUTINE Primary Care Provider: ALDO HOFFMAN DO Allergies Allergies No Known Drug Allergies Allergy (Verified 06/09/24 10:04) Hospital Summary - Hospital Course Hospital Course: 06/21/24 Pt resting in bed Post op day #1 for Right TKR by Dr. Manjarrez. Hospitalist consulted for medical management. Pt has a PMHX of CAD, dementia, hearing impaired, HTN, hyperlipidemia, type II DM, hypothyroidism, OA, diverticulosis, GERD, CKD, and stomach cancer. Pt is pleasant and reports no concerns at this time. Per [facility] staff pt lives at home with whom is WC bound and he is the sole caregiver for her. He does have HHC that comes in the home but may need more at d/c. Pt to eval per Ortho guidelines. Pt denies any further concerns at this time. 06/22/24 Pt resting in the chair. Ortho has signed off on pt and able to d/c when ok with hospitalist. Meds have been sent in by surgery to pharmacy IV fluids stopped d/t COY. WBC elevated likely from post op surgery. Will continue to monitor overnight and will likely d/c tomorrow. Pt is pleasant and reports no concerns at this time other than right knee pain. 06/23/24 Pt resting in bed C/O of right knee pain. Overall labs have improved today. Labs will need to be followed up outpatient. F/U appointments made with ortho and [facility] outpatient. Medications were sent to pharmacy by ortho. Denies any further concerns at this time. - Vitals & Intake/Output Vital Signs: Vital Signs Temperature 98.7 F 06/23/24 11:55 Pulse Rate 80 06/23/24 11:55 Respiratory Rate 18 06/23/24 11:55 Blood Pressure 146/64 06/23/24 11:55 O2 Sat by Pulse Oximetry 94 L 06/23/24 11:55 Intake & Output: Intake & Output 06/21/24 06/22/24 06/23/24 06/24/24 11:59 11:59 11:59 11:59 Intake Total 2508 760 Output Total 1350 1425 Balance 1158 -665 Weight 76 kg 78.4 kg - Lab Result Diagrams: 06/23/24 05:27 06/23/24 05:27 Lab Results-Last 24 Hrs: Lab Results-Last 24 Hours 06/22/24 06/22/24 06/23/24 Range/Units 16:41 21:25 05:27 WBC 11.9 H (4.23-9.07) x10^3/uL RBC 3.61 L (4.63-6.08) x10^6/uL Hgb 10.8 L (13.7-17.5) g/dL Hct 33.3 L (40.1-51.0) % MCV 92.2 (79.0-92.2) fL MCH 29.9 (25.7-32.2) pg MCHC 32.4 (32.3-36.5) g/dL RDW 14.3 (11.6-14.4) % Plt Count 138 L (163-337) x10^3/uL MPV 9.7 (9.4-12.4) fL Sodium (135-145) mmol/L Potassium (3.5-5.1) mmol/L Chloride (98-107) mmol/L Carbon Dioxide (22-30) mmol/L Anion Gap (5-15) MEQ/L BUN (9-20) mg/dL Creatinine (0.66-1.25) mg/dL Estimated GFR ML/MIN Glucose (74-106) mg/dL POC Glucometer 149 H 165 H (74 to 106) mg/dL Calcium (8.4-10.2) mg/dL Total Bilirubin (0.2-1.3) mg/dL AST (17-59) U/L ALT (0-50) U/L Alkaline Phosphatase (38-126) U/L Serum Total Protein (6.3-8.2) g/dL Albumin (3.5-5.0) g/dL 06/23/24 06/23/24 06/23/24 Range/Units 05:27 08:08 11:35 WBC (4.23-9.07) x10^3/uL RBC (4.63-6.08) x10^6/uL Hgb (13.7-17.5) g/dL Hct (40.1-51.0) % MCV (79.0-92.2) fL MCH (25.7-32.2) pg MCHC (32.3-36.5) g/dL RDW (11.6-14.4) % Plt Count (163-337) x10^3/uL MPV (9.4-12.4) fL Sodium 139 (135-145) mmol/L Potassium 4.0 (3.5-5.1) mmol/L Chloride 108 H (98-107) mmol/L Carbon Dioxide 21 L (22-30) mmol/L Anion Gap 14.1 (5-15) MEQ/L BUN 28 H (9-20) mg/dL Creatinine 1.33 H (0.66-1.25) mg/dL Estimated GFR 51.1 ML/MIN Glucose 106 (74-106) mg/dL POC Glucometer 98 142 H (74 to 106) mg/dL Calcium 8.2 L (8.4-10.2) mg/dL Total Bilirubin 0.90 (0.2-1.3) mg/dL AST 25 (17-59) U/L ALT 20 (0-50) U/L Alkaline Phosphatase 68 (38-126) U/L Serum Total Protein 5.4 L (6.3-8.2) g/dL Albumin 3.3 L (3.5-5.0) g/dL Micro Results-Entire Visit: Accuchecks Date 06/23/24 Date 06/23/24 Date 06/22/24 Time 11:54 Time 08:18 - Procedures and Test Procedures and Tests throughout Hospitalization: Therapy Orders & Screens 06/21/24 11:48 PT Eval & Treat ( Order) ROUTINE Reason for Eval:: Gait Training, WBAT RLE; ROM (Goals 0- 125 AROM), std TKRA Rehab Diagnosis: right knee pain Incentive Spirometry TID Comment: Q1H while awake Diagnosis: right knee pain Discharge Exam General Appearance: no apparent distress, alert Neurologic Exam: alert, oriented x 3, cooperative, normal mood/affect, nml cerebellar function, sensation nml, No motor deficits Eye Exam: PERRL, EOMI, eyes nml inspection Ears, Nose, Throat Exam: normal ENT inspection, pharynx normal, moist mucous membranes Neck Exam: normal inspection, non-tender, supple, full range of motion Respiratory Exam: normal breath sounds, lungs clear, No respiratory distress Cardiovascular Exam: regular rate/rhythm, normal heart sounds Gastrointestinal/Abdomen Exam: soft, No tenderness, No mass Male Genitalia Exam: deferred Rectal Exam: deferred Back Exam: normal inspection, normal range of motion, No CVA tenderness, No vertebral tenderness Extremity Exam: normal inspection, normal range of motion, limited range of motion (right knee with bandage and ice wrap) Skin Exam: normal color, warm, dry Final Diagnosis/Problem List - Final Discharge Diagnosis/Problem (1) Status post total right knee replacement Current Visit: Yes Status: Acute Code(s): Z96.651 - PRESENCE OF RIGHT ARTIFICIAL KNEE JOINT (2) Dementia Current Visit: No Status: Chronic Code(s): F03.90 - UNSP DEMENTIA, UNSP SEVERITY, WITHOUT BEH/PSYCH/MOOD/ANX (3) Diabetes mellitus Current Visit: No Status: Chronic Code(s): E11.9 - TYPE 2 DIABETES MELLITUS WITHOUT COMPLICATIONS (4) Hard of hearing Current Visit: No Status: Chronic Code(s): H91.90 - UNSPECIFIED HEARING LOSS, UNSPECIFIED EAR (5) Hypothyroidism Current Visit: Yes Status: Chronic Code(s): E03.9 - HYPOTHYROIDISM, UNSPECIFIED (6) BPH (benign prostatic hyperplasia) Current Visit: Yes Status: Chronic Code(s): N40.0 - BENIGN PROSTATIC HYPERPLASIA WITHOUT LOWER URINRY TRACT SYMP (7) COY (acute kidney injury) Current Visit: Yes Status: Acute Code(s): N17.9 - ACUTE KIDNEY FAILURE, UNSPECIFIED (8) Metabolic acidosis Current Visit: Yes Status: Acute Assessment & Plan: (1) Status post total right knee replacement Current Visit: Yes Status: Acute Assessment & Plan: - Post OP day # 1 - Ortho to manage- Dr. Manjarrez - PT eval and treat - Cryocuff - elevate extremity 06/22 - WBC 16.0 likely from post op surgery -06/23 -WBC improved 11.9 likely from post op surgery Code(s): Z96.651 - PRESENCE OF RIGHT ARTIFICIAL KNEE JOINT (2) Dementia Current Visit: No Status: Chronic Assessment & Plan: - chronic - Continue Aricept Code(s): F03.90 - UNSP DEMENTIA, UNSP SEVERITY, WITHOUT BEH/PSYCH/MOOD/ANX (3) Diabetes mellitus Current Visit: No Status: Chronic Assessment & Plan: - A1C- 6.03- controlled - Hx of but not currently on any meds -Humalog sliding scale, accu ck AC/HS Code(s): E11.9 - TYPE 2 DIABETES MELLITUS WITHOUT COMPLICATIONS (4) Hard of hearing Current Visit: No Status: Chronic Assessment & Plan: - Has left hearing aide Code(s): H91.90 - UNSPECIFIED HEARING LOSS, UNSPECIFIED EAR (5) Hypothyroidism Current Visit: Yes Status: Chronic Assessment & Plan: - continue synthroid Code(s): E03.9 - HYPOTHYROIDISM, UNSPECIFIED (6) BPH (benign prostatic hyperplasia) Current Visit: Yes Status: Chronic Assessment & Plan: - Continue Flomax Code(s): N40.0 - BENIGN PROSTATIC HYPERPLASIA WITHOUT LOWER URINRY TRACT SYMP Code(s): N40.0 - BENIGN PROSTATIC HYPERPLASIA WITHOUT LOWER URINRY TRACT SYMP (7) COY (acute kidney injury) Current Visit: Yes Status: Acute Assessment & Plan: - Creat 1.43, baseline 1.25 - NS @100 stopped - pt eating and drinking well -06/23 -CR 1.33 impoved -Follow up outpatient for labs Code(s): N17.9 - ACUTE KIDNEY FAILURE, UNSPECIFIED (8) Metabolic acidosis Current Visit: Yes Status: Acute Assessment & Plan: - Co2 18- started oral bicarb BID -06/23 -CO2 improved today @ 21 Code(s): E87.20 - ACIDOSIS, UNSPECIFIED - Discharge Discharge Date: 06/23/24 Disposition: HOME HEALTH SERVICE Condition: Stable Prescriptions: New Hydrocodone/Acetaminophen [Hydrocodone-Acetamin 5-325 mg] 1 - 2 tab PO Q4HPRN PRN #30 tablet MDD 6 PRN Reason: Pain Aspirin 325 mg PO BID 14 Days tablet Continue Pravastatin Sodium [Pravachol] 40 mg PO HS Isosorbide Mononitrate 30 mg [Imdur 30 MG] 30 mg PO DAILY Allopurinol 300 mg [Zyloprim 300 mg] 300 mg PO UD Nitroglycerin 0.4 mg Tablet [Nitrostat 0.4 MG Tablet] 0.4 mg SL UD Levothyroxine Sodium 25 Mcg [Synthroid 25 Mcg] 100 mcg PO DAILY Tamsulosin HCl 0.4 mg [Flomax 0.4 MG] 0.4 mg PO DAILY Lisinopril/Hydrochlorothiazide [Lisinopril-Hctz 20-12.5 mg Tab] 1 ea BID Docusate Sodium 100 mg [Docusate Sodium 100 MG] 100 mg PO DAILY PRN PRN Reason: Constipation Donepezil HCl 10 mg [Aricept 10 MG] 10 mg PO BID Aspirin 81 mg PO DAILY Additional Instructions: WEIGHTBEARING TOLERATED LEAVE CURRENT DRESSING IN PLACE UNTIL 06/28 ON 06/28 REMOVE DRESSING, SHOWER/BATHE, THEN APPLY NEW DRESSING (GIVEN TO YOU AT DC) LEAVE NEW DRESSING IN PLACE UNTIL YOUR FOLLOWUP ON 07/06 Follow up with: ALDO HOFFMAN DO [Primary Care Provider] - 06/27/24 3:30 pm ALEXI ROMERO NP [NON-STAFF PHY W/O PRIVILEGES] - 07/06/24 11:00 am ([facility] )
--- NOTE | 2024-06-23 17:43 | DS ---
DISCHARGE SUMMARY ADMITTING DIAGNOSIS: Osteoarthritis, right knee, status post right total knee replacement arthroplasty. DISCHARGE DIAGNOSES: 1) Osteoarthritis, right knee, status post right total knee replacement arthroplasty. 2) Electrolyte imbalance, resolved. DETAILS OF PATIENT'S HOSPITAL COURSE: He was admitted on the above-noted date of 06/21/2024 and proceeded to surgery, where he had the right total knee replacement arthroplasty performed. Postoperatively, he was kept in observation for pain control and to get his antibiotics as well as for physical therapy. Patient was noted to have some abnormal electrolytes, and thus, he was not discharged on the first postoperative day. It was also deemed that due to the patient's home situation with his being blind and his age of 89 and being very hard of hearing, home health would be an appropriate option. Thus, home health was arranged, as well as home PT. Patient's labs have since stabilized in regard to his electrolytes. His hemoglobin has remained stable and is at 10.8 with hematocrit of 33. Patient is progressing well in physical therapy. He is tolerating oral pain medication. His wound is clean and dry without erythema or induration. His Aquacel dressing was in place. At this point, the patient will be discharged home on his admitting home medications per the hospitalist, and in addition, he will also have an aspirin twice a day for 14 days and then can switch to a baby aspirin. He also had a prescription for Calpine 5 mg 1 or 2 q.4-6 hours p.r.n. pain, #30, and no refill. He will follow up in the office in 2 weeks for recheck evaluation with x-ray. He will continue with his outpatient physical therapy at home.
== END 2024-06-23 13:42 | disposition home health service (06) ==
LOC: SDC 06:23 → MED SURG 08:00
PROVIDERS: ADMIT Internal Medicine; ATTEND Orthopaedic Surgery
DX: M17.11 Unilateral primary osteoarthritis, right knee (principal); F03.90 Unspecified dementia, unspecified severity, without behavioral disturbance, psychotic disturbance, mood disturbance, and anxiety; Z96.651 Presence of right artificial knee joint; I10 Essential (primary) hypertension; E11.9 Type 2 diabetes mellitus without complications; H91.92 Unspecified hearing loss, left ear; E03.9 Hypothyroidism, unspecified; N40.0 Benign prostatic hyperplasia without lower urinary tract symptoms; N17.9 Acute kidney failure, unspecified; E87.20 Acidosis, unspecified; M25.561 Pain in right knee; Z79.899 Other long term (current) drug therapy; Z85.028 Personal history of other malignant neoplasm of stomach
CPT/HCPCS: 27447; 36415; 73560; 76937; 80053; 81001; 82947; 83036; 85025; 85027; 97110; 97161; 97530; C1713; C1776; G0378; Q3014; 62322; 64447; 99100; J0690; J1817; J2704; J3010; J3370; A9270-GY